=== PATIENT | female | born 1950 | race Caucasian/White ===

== ENCOUNTER → 2016-07-27 | Outpatient (CLI) | payer BC ==
[~2016-07-27] MED LIST: AMIO200T4 PO; AMOX1POW6 PO; AMOX875T PO; ATOR-26 PO; ATV/1 PO; BUSP15TA70 PO; CEPH500C2 PO; CHOL100040 PO; CRAN1TAB3 PO; ERGO500011 PO; FEXO1TAB46 PO; LEVO125T5 PO; LEVO150T9 PO; LISI-725 PO; LPR100 PO; LSNP/30 PO; LSX20 PO; LXP/20 PO; MAGN250T16 PO; MAGN250T3 PO; OMEP20CA9 PO; POTA10CA28 PO; SALI1SPR3 NAE; TPRSR/100 PO; WARF-285; WARF2TAB PO; WARF2TAB8 PO; WARF3TAB PO
[2016-07-27 15:46] LABS: BASO % 0.2 %; BASO ABS # 0.01 K/uL (0-0.2); COMPLETE YES; EOS % 1.1 %; HEMATOCRIT 42.6 % (37-47); IG% 0.2 %; LYMPH % 15.6 %; LYMPH ABS # 1.03 K/uL (1.2-3.4); MEAN CELL VOLUME 82.1 fL (80-100); MEAN CORPUSCULAR HEMOGLOBIN 26.4 pg (25-34); MEAN CORPUSCULAR HGB CONC 32.2 g/dl (32-36); MEAN PLATELET VOLUME 12.3 fL (7.4-10.4); MONO % 3.9 %; PLATELET COUNT 264 K/uL (130-400); RED BLOOD COUNT 5.19 M/uL (4.2-5.4)
[2016-07-27 16:09] LABS: BLOOD UREA NITROGEN 14 mg/dl (7-18); BUN/CREATININE RATIO 12.3 (10-20); CALCIUM 8.8 mg/dl (8.5-10.1); CARBON DIOXIDE 28 mmol/L (21-32); CHLORIDE 105 mmol/L (98-107); GLUCOSE 109 mg/dl (70-99); MAGNESIUM 2.1 mg/dl (1.8-2.4); POTASSIUM 4.1 mmol/L (3.5-5.1); SODIUM 140 mmol/L (136-145)
[2016-08-01 16:28] LABS: AMIODARONE 1.7 mcg/mL (1.5-2.5); DESMETHYLAMIODARONE 1.3 mcg/mL (1.5-2.5)
--- NOTE | 2016-08-02 07:09 | CODING QUERY MEDICAL NECESSITY ---
SUPPORTING DIAGNOSIS NEEDED A supporting diagnosis is required for the test/procedure performed on this patient in order for us to be reimbursed by the patient's insurance. Please provide a supporting diagnosis for the following test/procedure listed below next to the test name along with your signature. *If there is no additional diagnosis for this patient that would support the following test/procedure please document that below next to the test/procedure. Test(s)/Procedure(s) that require a supporting diagnosis: DOS 07/27 * Amiodarone Level DIAGNOSIS: Provider Signature: Date: Thank you Taniya Pandya Health Information Management Once completed, please kindly fax back to [phone] For questions please call [phone]
== END | disposition home or self-care (01) ==
LOC: C.LAB1850 14:35
PROVIDERS: ATTEND Internal Medicine
DX: I48.0 Paroxysmal atrial fibrillation (principal)

== ENCOUNTER → 2016-07-28 | Day surgery (SDC) | payer BC ==
[~2016-07-28] VITALS: Ht 177.8 cm; Wt 146.8 kg
[~2016-07-28] MED LIST changes: -CHOL100040 PO; +ERGO1CAP41 PO; -ERGO500011 PO; +LEVO125T4 PO; -LEVO125T5 PO; +LIDOCAINE HCL 2% 2 ML VIAL (20MG/ML) ONE; -MAGN250T3 PO; +PROPOFOL IV EMULSION 10 MG/ML 20 ML VIAL IV ONE
[2016-07-28 07:10] VITALS: BP 193/115; PULSE 85; TEMP 36.8; O2SAT 95; Ht 177.8 cm; Wt 146.8 kg
[2016-07-28 07:45] VITALS: BP 169/107; PULSE 90; O2SAT 98
[2016-07-28 07:50] VITALS: BP 124/74; PULSE 87; O2SAT 98
[2016-07-28 07:52] VITALS: BP 124/74; PULSE 59; PULSE 87; O2SAT 98
[2016-07-28 07:55] VITALS: BP 128/61; PULSE 59; O2SAT 99
--- NOTE | 2016-07-28 08:02 | Cardiology Procedure Brief Nt ---
Preliminary Cardiology Note Procedure Date Jul 28, 2016. 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
--- NOTE | 2016-07-28 08:14 | OPERATIVE REPORT ---
DATE OF OPERATION: 07/28/2016 INDICATIONS FOR CARDIOVERSION: Atrial fibrillation. HISTORY OF PRESENT ILLNESS: This is a 66-year-old woman who has a history of atrial fibrillation for which she has been maintained on amiodarone. She has done relatively well for several years, however, developed atrial fibrillation on the evening of 07/26/2016. She has remained in atrial fibrillation and is quite symptomatic; therefore she was brought to laboratory for cardioversion. DESCRIPTION OF PROCEDURE: After obtaining informed consent for the procedure, she was anesthetized using propofol anesthetic delivered by the anesthesia department. Once adequately anesthetized, electrical cardioversion was performed using anteroposterior patch electrodes and a 200 joule biphasic shock. She converted to sinus bradycardia without difficulty. She awoke without complication, will be observed briefly and discharged. CANDE
--- NOTE | 2016-07-28 09:04 | Discharge Instructions ---
Discharge Instructions Admission Reason for Admission: A Fib Discharge Discharge Diagnosis / Problem: electrical cardioversion Discharge Goals Goal(s): Improve disease control Activity Recommendations Activity Limitations: resume your previous activity . Instructions / Follow-Up Instructions / Follow-Up ACTIVITY RECOMMENDATIONS: * May resume driving tomorrow. SPECIAL CARE: * May apply burn ointment for skin irritation. * Please contact physician for any lightheadedness, dizziness or palpitations. Current Hospital Diet Patient's current hospital diet: AHA Diet (Heart Healthy) Discharge Diet Recommended Diet: AHA Diet (Heart Healthy) Pending Studies Studies pending at discharge: no Medical Emergencies . Who to Call and When: Medical Emergencies: If at any time you feel your situation is an emergency, please call 911 immediately. . Non-Emergent Contact Non-Emergency issues call your: Primary Care Provider . . "Provider Documentation" section prepared by Joe Najera. VTE Core Measure Inpt VTE Proph given/why not?: Other Anticoagulation
--- NOTE | 2016-07-28 09:17 | Anesthesiology Progress Note ---
Anesthesia Post Op Note Date & Time Jul 28, 2016 at 09:16 Vital Signs Pain Intensity: 0 Vital Signs Past 12 Hours Date Time Temp Pulse Resp B/P Pulse Ox O2 Delivery O2 Flow Rate FiO2 07/28/16 08:50 57 16 145/62 99 Room Air 07/28/16 08:35 62 16 146/67 99 Room Air 07/28/16 08:20 58 16 124/62 98 Room Air 07/28/16 08:20 60 16 124/62 98 Room Air 07/28/16 08:00 59 16 126/62 98 Room Air 07/28/16 07:55 59 16 128/61 99 Nasal Cannula 4 07/28/16 07:52 59 16 124/74 98 Nasal Cannula 4 07/28/16 07:50 87 16 124/74 98 Nasal Cannula 4 07/28/16 07:45 90 16 169/107 98 Nasal Cannula 4 07/28/16 07:10 36.8 85 16 193/115 95 Room Air Notes Mental Status: alert / awake / arousable, participated in evaluation Pt Amnestic to Procedure: Yes Nausea / Vomiting: adequately controlled Pain: adequately controlled Airway Patency, RR, SpO2: stable & adequate BP & HR: stable & adequate Hydration State: stable & adequate Anesthetic Complications: no major complications apparent
[2016-07-28 09:20] VITALS: BP 130/65; PULSE 57; O2SAT 99
== END | disposition home or self-care (01) ==
LOC: C.CATH 06:52
PROVIDERS: ATTEND Internal Medicine Cardiovascular Disease
DX: I48.0 Paroxysmal atrial fibrillation (principal); R00.2 Palpitations; I25.10 Atherosclerotic heart disease of native coronary artery without angina pectoris; Z79.899 Other long term (current) drug therapy; F41.9 Anxiety disorder, unspecified; N18.2 Chronic kidney disease, stage 2 (mild); I12.9 Hypertensive chronic kidney disease with stage 1 through stage 4 chronic kidney disease, or unspecified chronic kidney disease; E78.5 Hyperlipidemia, unspecified; E03.9 Hypothyroidism, unspecified; K20.9 Esophagitis, unspecified; Z79.01 Long term (current) use of anticoagulants; Z82.49 Family history of ischemic heart disease and other diseases of the circulatory system; Z83.3 Family history of diabetes mellitus; Z98.890 Other specified postprocedural states; Z96.649 Presence of unspecified artificial hip joint; Z90.710 Acquired absence of both cervix and uterus; Z68.41 Body mass index [BMI] 40.0-44.9, adult

== ENCOUNTER → 2016-08-15 | Outpatient (CLI) | payer BC ==
[~2016-08-15] MED LIST changes: -LIDOCAINE HCL 2% 2 ML VIAL (20MG/ML) ONE; -PROPOFOL IV EMULSION 10 MG/ML 20 ML VIAL IV ONE
[2016-08-15 15:44] LABS: URINE BILIRUBIN NEG (NEG); URINE NITRITE NEG (NEG); URINE SPECIFIC GRAVITY 1.009 (1.000-1.030); UROBILINOGEN NEG (NEG)
[2016-08-15 15:48] LABS: MANUAL MICROSCOPIC REQUIRED? NO; REVIEW REQ? NO; URINE APPEARANCE SLIGHTLY CLOUDY (CLEAR); URINE COLOR YELLOW
== END | disposition home or self-care (01) ==
LOC: C.LAB 14:03
PROVIDERS: ATTEND Internal Medicine
DX: N39.0 Urinary tract infection, site not specified (principal); R35.0 Frequency of micturition

== ENCOUNTER → 2016-08-21 | Outpatient (CLI) | payer BC ==
[2016-08-21 10:12] LABS: COMPLETE YES; EOS % 1.1 %; HEMATOCRIT 42.1 % (37-47); IG% 0.1 %; LYMPH % 8.1 %; LYMPH ABS # 0.65 K/uL (1.2-3.4); MEAN CELL VOLUME 83.9 fL (80-100); MEAN CORPUSCULAR HEMOGLOBIN 27.1 pg (25-34); MEAN CORPUSCULAR HGB CONC 32.3 g/dl (32-36); MEAN PLATELET VOLUME 12.6 fL (7.4-10.4); MONO % 9.2 %; NEUT % 81.5 %; PLATELET COUNT 241 K/uL (130-400); RED BLOOD COUNT 5.02 M/uL (4.2-5.4); WHITE BLOOD COUNT 8.06 K/uL (4.8-10.8)
[2016-08-21 10:32] LABS: URINE APPEARANCE CLOUDY (CLEAR); URINE COLOR RED; URINE EPITHELIAL CELL AUTO 20-30 /lpf (0-5); URINE NITRITE NEG (NEG); URINE PH 5.5 (4.5-7.5); URINE SPECIFIC GRAVITY 1.019 (1.000-1.030); UROBILINOGEN NEG (NEG)
[2016-08-21 10:34] LABS: MANUAL MICROSCOPIC REQUIRED? NO; REVIEW REQ? NO
[2016-08-21 10:37] LABS: URINE BILIRUBIN NEG (NEG)
== END | disposition home or self-care (01) ==
LOC: C.LAB 09:20
PROVIDERS: ATTEND Internal Medicine
DX: R31.0 Gross hematuria (principal)

== ENCOUNTER → 2016-08-29 | Outpatient (CLI) | payer BC ==
[2016-08-29 10:10] LABS: URINE APPEARANCE CLEAR (CLEAR); URINE BILIRUBIN NEG (NEG); URINE COLOR YELLOW; URINE NITRITE NEG (NEG); URINE SPECIFIC GRAVITY 1.011 (1.000-1.030); UROBILINOGEN NEG (NEG)
[2016-08-29 10:11] LABS: MANUAL MICROSCOPIC REQUIRED? NO; REVIEW REQ? NO
== END | disposition home or self-care (01) ==
LOC: C.LAB 08:39
PROVIDERS: ATTEND Internal Medicine
DX: R35.0 Frequency of micturition (principal)

== ENCOUNTER → 2017-01-09 | Outpatient (CLI) | payer BC ==
[~2017-01-09] MED LIST changes: +CHOL100040 PO; -ERGO1CAP41 PO; +ERGO500011 PO; -LEVO125T4 PO; +LEVO125T5 PO; +MAGN250T3 PO
[2017-01-09 15:27] LABS: ALB/GLOB RATIO 0.7 (0.9-2); ALT/SGPT 35 U/L (12-78); AST/SGOT 29 U/L (15-37); BLOOD UREA NITROGEN 18 mg/dl (7-18); BUN/CREATININE RATIO 18.3 (10-20); CALCIUM 8.3 mg/dl (8.5-10.1); CARBON DIOXIDE 28 mmol/L (21-32); CHLORIDE 107 mmol/L (98-107); GLUCOSE 104 mg/dl (70-99); MAGNESIUM 2.2 mg/dl (1.8-2.4); POTASSIUM 4.5 mmol/L (3.5-5.1); SODIUM 142 mmol/L (136-145)
[2017-01-09 15:38] LABS: ALKALINE PHOSPHATASE 171 U/L (45-117)
[2017-01-13 17:21] LABS: AMIODARONE 1.5 mcg/mL (1.5-2.5); DESMETHYLAMIODARONE 1.1 mcg/mL (1.5-2.5)
--- NOTE | 2017-01-16 13:32 | CODING QUERY MEDICAL NECESSITY ---
SUPPORTING DIAGNOSIS NEEDED A supporting diagnosis is required for the test/procedure performed on this patient in order for us to be reimbursed by the patient's insurance. Please provide a supporting diagnosis for the following test/procedure listed below next to the test name along with your signature. *If there is no additional diagnosis for this patient that would support the following test/procedure please document that below next to the test/procedure. Test(s)/Procedure(s) that require a supporting diagnosis: * AMIODARONE DIAGNOSIS: Provider Signature: Date: Thank you Maria Boss [employer] Information Management Once completed, please kindly fax back to [phone] For questions please call [phone]
== END | disposition home or self-care (01) ==
LOC: C.LAB 14:08
PROVIDERS: ATTEND Physician Assistant Medical
DX: I48.0 Paroxysmal atrial fibrillation (principal); I50.9 Heart failure, unspecified; Z79.899 Other long term (current) drug therapy

== ENCOUNTER → 2017-01-22 | Outpatient (CLI) | payer BC ==
[~2017-01-22] MED LIST changes: -CHOL100040 PO; +ERGO1CAP41 PO; -ERGO500011 PO; +LEVO125T4 PO; -LEVO125T5 PO; -MAGN250T3 PO
--- NOTE | 2017-01-22 12:37 | MAMMOGRAPHY REPORT ---
BILATERAL DIGITAL SCREENING MAMMOGRAM WITH CAD: 01/22/2017 CLINICAL HISTORY: Routine screening. TECHNIQUE: Bilateral CC, MLO, XCCL andrepeat right MLO views were obtained. Current study was also evaluated with a Computer Aided Detection (CAD) system. COMPARISON: Comparison is made to exams dated: 01/17/2016 mammogram, 01/11/2015 mammogram, 01/06/2014 m ammogram, 12/10/2012 mammogram, 12/06/2011 mammogram, and 09/16/2010 mammogram - [facility] enter. BREAST COMPOSITION: There are scattered areas of fibroglandular density in both breasts. FINDINGS: There is a stable lobulated and circumscribed mass in the upper outer posterior left breast . A stable metallic biopsy marker within the right breast. Benign-appearing microcalcifications celestino aterally. Minimal vascular calcification in the breasts. No new suspicious mass, architectural dist ortion or cluster of microcalcifications is seen. IMPRESSION: ACR BI-RADS CATEGORY 1: NEGATIVE There is no mammographic evidence of malignancy. A 1 year screening mammogram is recommended. The pa tient will receive written notification of the results. Approximately 10% of breast cancers are not detected with mammography. A negative mammographic report should not delay biopsy if a clinically suggestive mass is present. Sujatha Ferreira M.D. ay/:01/22/2017 08:47:35 Order Tracer: Jose Elias SCHULER)([place]), [facility] letter sent: Normal 1/2 BI-RADS Code: ACR BI-RADS Category 1: Negative
== END | disposition home or self-care (01) ==
LOC: C.MAMM 07:22
PROVIDERS: ATTEND Internal Medicine
DX: Z12.31 Encounter for screening mammogram for malignant neoplasm of breast (principal)

== ENCOUNTER → 2017-02-17 | Outpatient (CLI) | payer BC ==
[2017-02-17 09:01] LABS: BASO % 0.3 %; BASO ABS # 0.02 K/uL (0-0.2); COMPLETE YES; EOS % 1.9 %; HEMATOCRIT 39.9 % (37-47); IG% 0.3 %; LYMPH % 8.2 %; LYMPH ABS # 0.62 K/uL (1.2-3.4); MEAN CELL VOLUME 82.1 fL (80-100); MEAN CORPUSCULAR HEMOGLOBIN 25.5 pg (25-34); MEAN CORPUSCULAR HGB CONC 31.1 g/dl (32-36); MEAN PLATELET VOLUME 11.9 fL (7.4-10.4); MONO % 7.3 %; PLATELET COUNT 258 K/uL (130-400); RED BLOOD COUNT 4.86 M/uL (4.2-5.4); WHITE BLOOD COUNT 7.55 K/uL (4.8-10.8)
[2017-02-17 09:33] LABS: ALT/SGPT 45 U/L (12-78); AST/SGOT 37 U/L (15-37); BLOOD UREA NITROGEN 16 mg/dl (7-18); BUN/CREATININE RATIO 16.4 (10-20); CALCIUM 8.8 mg/dl (8.5-10.1); CARBON DIOXIDE 29 mmol/L (21-32); CHLORIDE 108 mmol/L (98-107); GLUCOSE 104 mg/dl (70-99); MAGNESIUM 2.2 mg/dl (1.8-2.4); POTASSIUM 4.4 mmol/L (3.5-5.1); SODIUM 142 mmol/L (136-145)
[2017-02-17 09:41] LABS: ALB/GLOB RATIO 0.6 (0.9-2); ALKALINE PHOSPHATASE 169 U/L (45-117); CHOLESTEROL 144 mg/dl (0-200); CHOLESTEROL/HDL RATIO 2.7; HDL CHOLESTEROL 54 mg/dl; LDL CHOLESTEROL CALCULATED 75 mg/dl; TRIGLYCERIDES 75 mg/dl (0-150); VERY LOW DENSITY LIPOPROT CALC 15 mg/dl
--- NOTE | 2017-02-21 10:30 | CODING QUERY MEDICAL NECESSITY ---
SUPPORTING DIAGNOSIS NEEDED Dr. Weber, A supporting diagnosis is required for the test/procedure performed on this patient in order for us to be reimbursed by the patient's insurance. Please provide a supporting diagnosis for the following test/procedure listed below next to the test name along with your signature. *If there is no additional diagnosis for this patient that would support the following test/procedure please document that below next to the test/procedure. Test(s)/Procedure(s) that require a supporting diagnosis: * ([id number]) VITAMIN D ASSAY DIAGNOSIS: DATE OF SERVICE: 02/17/17 Provider Signature: Date: Thank you Shmuel Gonzalez [facility] Information Management Once completed, please kindly fax back to [phone] For questions please call [phone]
== END | disposition home or self-care (01) ==
LOC: C.LAB 07:12
PROVIDERS: ATTEND Internal Medicine
DX: R73.09 Other abnormal glucose (principal); N20.0 Calculus of kidney; E55.9 Vitamin D deficiency, unspecified

== ENCOUNTER 2017-03-07 08:03 | Emergency (ER) | payer BC ==
[~2017-03-07] VITALS: Ht 180.3 cm; Wt 145.0 kg
[~2017-03-07 08:03] MED LIST changes: -AMOX875T PO; -ERGO1CAP41 PO; -LEVO150T9 PO; -LSNP/30 PO; -TPRSR/100 PO; -WARF2TAB PO; -WARF3TAB PO
[2017-03-07 08:08] VITALS: TEMP 36.6; Ht 180.3 cm; Wt 145.0 kg
--- NOTE | 2017-03-07 08:24 | EMERGENCY ROOM VISIT NOTE ---
ED Visit Note First contact with patient: 08:13 I have seen and examined this patient with Aranza Finley and generally agree with the treatment plan as discussed. Problem List Medical Problems: (1) Atrial Fibrillation Status: Chronic (2) Body Mass Index 40 And Over, Adult Status: Chronic (3) CAD (coronary artery disease) Status: Chronic (4) Diab Krystina Wo Compl, Type Ii Or Unspec Type, Not Uncntrld Status: Chronic (5) History of depression Status: Chronic (6) Hypercholesterolemia Status: Chronic (7) Hypertension Nos Status: Chronic (8) Hypothyroidism Status: Chronic Surgical Problems: (1) Hip Joint Replacement Status Status: Resolved (2) History of cardiac catheterization Status: Resolved Current/Historical Medications Scheduled Amiodarone Hcl (Cordarone), 400 MG PO DAILY Amoxicillin-Potassium Clavulan (Amoxicillin/Clavulanate P), 1 TAB PO Q12 Atorvastatin (Lipitor), 80 MG PO HS Buspirone Hcl (Buspar), 15 MG PO TID Cephalexin Monohydrate (Keflex), 500 MG PO QPM Cranberry (Vaccinium Macrocarp (Cranberry), 2 TAB PO QPM Escitalopram Oxalate (Escitalopram Oxalate), 20 MG PO QAM Fexofenadine Hcl (Lucero), 180 MG PO QAM Furosemide (Furosemide), 20 MG PO Q2D Levothyroxine Sodium (Levothyroxine Sodium), 150 MCG PO QAM Lisinopril (Zestril), 20 MG PO QAM Magnesium Oxide (Mg Supplement (Magnesium Oxide), 250 MG PO TID Metoprolol Tartrate (Metoprolol Tartrate), 100 MG PO BID Omeprazole (Prilosec), 20 MG PO BID Potassium Chloride (Micro-K Ext Rel), 10 MEQ PO Q2D Saline (Saline Nasal Dem[place]), RENETTA QAM Warfarin Sod (Jantoven), 2 MG PO DIRECTED Warfarin Sodium (Warfarin Sodium), DIRECTED Scheduled PRN Lorazepam (Ativan), 1 MG PO TID PRN for Anxiety/Agitation Allergies Coded Allergies: No Known Allergies (Verified , 08/27/15) Vital Signs Date Time Temp Pulse Resp B/P (MAP) Pulse Ox O2 Delivery O2 Flow Rate FiO2 03/07/17 08:08 36.6 70 18 163/73 94 Room Air Departure Information Referrals Guillard, Sotero,M.D. (PCP) Patient Instructions [facility]
[2017-03-07] MEDS ORDERED: LEVO150T9 PO (08:33)
[2017-03-07] MEDS ORDERED: ERGO1CAP41 PO (08:33)
[2017-03-07] MEDS ORDERED: TPRSR/100 PO (08:33)
[2017-03-07] MEDS ORDERED: LSNP/30 PO (08:33)
[2017-03-07] MEDS ORDERED: WARF3TAB PO (08:34)
[2017-03-07] MEDS ORDERED: WARF2TAB PO (08:34)
[2017-03-07] MEDS ORDERED: LIDOCAINE/EPINEPHRINE 1% 20 ML VIAL INFIL ONE (09:00)
--- NOTE | 2017-03-07 09:17 | EMERGENCY ROOM VISIT NOTE ---
History First contact with patient: 08:13 Chief Complaint: LACERATION/CUT (NON-SUTURE) Stated Complaint: FALL,OPEN WOUND ON R LEG Nursing Triage Summary: Pt to triage in WC. Large tear to right lower anterior leg. (Approx 4 inches) Bleeding controlled. States she was walking using her walker and walker caught on something causing her to fall. Tear to right posterior hand. Denies hitting head "well I may have bumped it but it wasn't hard". Takes Warfarin. Levels just checked per patient. History of Present Illness The patient is a 67 year old female who presents to the Emergency Room with complaints of right leg laceration. The patient states that around 7:30 AM she was using her walker and planning to do a load of laundry. She states that she has had a pinched nerve in the left leg and wears a brace on the left leg. She states she felt like that leg gave out and she fell to the ground. She believes that she cut her right anterior abebe on the walker when she fell. She states she scraped her right wrist but did not fall onto an outstretched hand. She states that she had a "light bump" to the head. She denies any headache, loss of consciousness, nausea, vomiting, neck pain or back pain. She does take Coumadin for atrial fibrillation. Her last INR was on March 01 and was found to be 2.6. The patient also has a history of venous stasis and lymphedema. She denies any chest pain, trouble breathing, syncope. She denies abdominal pain, nausea or vomiting. She is not certain if her tetanus is up-to-date. Review of Systems A 10 system review of systems was completed with positives and pertinent negatives listed in the HPI. Past Medical/Surgical History Medical Problems: (1) Anticoagulants,Lt,Current Use (2) Atrial Fibrillation (3) Benign Neoplasm Lg Bowel (4) Body Mass Index 40 And Over, Adult (5) CAD (coronary artery disease) (6) Diab Krystina Wo Compl, Type Ii Or Unspec Type, Not Uncntrld (7) History of depression (8) Hypercholesterolemia (9) Hypertension Nos (10) Hypothyroidism Surgical Problems: (1) Hip Joint Replacement Status (2) History of cardiac catheterization Family History Cancer Heart disease Hypertension Lung disease Social History Smoking Status: Never Smoker Drug Use: none Marital Status: Housing Status: lives with family Current/Historical Medications Scheduled Amiodarone Hcl (Cordarone), 200 MG PO BID Amoxicillin & Pot Clavulanate (Augmentin 875-125 mg), 1 TAB PO BID Atorvastatin (Lipitor), 80 MG PO HS Buspirone Hcl (Buspar), 15 MG PO TID Cranberry (Vaccinium Macrocarp (Cranberry), 2 TAB PO QPM Ergocalciferol (Vitamin D 77751 Unit), 50,000 UNIT PO WK Escitalopram Oxalate (Escitalopram Oxalate), 20 MG PO QAM Fexofenadine Hcl (Lucero), 180 MG PO QAM Furosemide (Furosemide), 20 MG PO Q2D Levothyroxine Sodium (Levothyroxine Sodium), 150 MCG PO DAILY Lisinopril (Zestril), 30 MG PO DAILY Magnesium Oxide (Mg Supplement (Magnesium Oxide), 250 MG PO TID Metoprolol Succinate (Metoprolol Succinate ER), 100 MG PO BID Omeprazole (Prilosec), 20 MG PO BID Potassium Chloride (Micro-K Ext Rel), 10 MEQ PO Q2D Saline (Saline Nasal [place]), RENETTA QAM Warfarin Sodium (Coumadin), 2 MG PO 6XWK Warfarin Sodium (Coumadin), 3 MG PO WK Scheduled PRN Lorazepam (Ativan), 1 MG PO TID PRN for Anxiety/Agitation Physical Exam Vital Signs Date Time Temp Pulse Resp B/P (MAP) Pulse Ox O2 Delivery O2 Flow Rate FiO2 03/07/17 14:51 62 157/73 96 03/07/17 12:31 64 20 146/80 94 Room Air 03/07/17 09:44 66 18 177/85 95 Room Air 03/07/17 08:08 36.6 70 18 163/73 94 Room Air Physical Exam VITALS: Vitals are noted on the nurse's note and reviewed by myself. Vital signs stable. The patient is afebrile. She is not tachycardic, tachypneic or hypoxic. GENERAL: This is a 67-year-old female, in no acute distress, nondiaphoretic, well-developed well-nourished. SKIN: There are chronic venous stasis changes to the bilateral lower extremities. There is a large, 7 cm skin tear/laceration with gaping edges to the right anterior lower extremity. Capillary reflex less than 2 seconds. HEAD: Normocephalic atraumatic. EARS: External auditory canals clear, tympanic membranes pearly melvin without erythema or effusion bilaterally. There is no hemotympanum. EYES: Pupils equal round and reactive to light and accommodation. Conjunctivae without injection, sclerae without icterus. Extraocular movements intact. NOSE: Patent, turbinates without inflammation or discharge. Strength MOUTH: Mucous membranes moist. Tonsils are not enlarged. Pharynx without erythema or exudate. Uvula midline. Airway patent. Tongue does not deviate. NECK: Supple without nuchal rigidity. Cervical spine is nontender. No JVD. HEART: Regular rate and rhythm without murmurs gallops or rubs. LUNGS: Clear to auscultation bilaterally without wheezes, rales or rhonchi. No retractions or accessory muscle use. MUSCULOSKELETAL: Full range of motion without joint tenderness in all extremities. There is no deformity. There is a large laceration to the right lower anterior leg as above. The patient was reassessed after she had been in the emergency department and began to develop ecchymosis and tenderness in the site of the laceration. She also developed ecchymosis, swelling and tenderness to the left knee. NEURO: Patient was alert and oriented to person place and time. No focal neurological deficits. Medical Decision & Procedures ER Provider Diagnostic Interpretation: [~ rep ct add3]] CT SCAN OF THE BRAIN WITHOUT IV CONTRAST CLINICAL HISTORY: Fall. COMPARISON STUDY: No priors. TECHNIQUE: Unenhanced axial CT scan of the brain is performed from the vertex to the skull base. CT DOSE: 638.56 mGycm FINDINGS: Brain parenchyma: There are age-related involutional changes noting mild subcortical and periventricular microangiopathic change. There is no hemorrhage, mass effect, or evidence of acute territorial ischemia by CT criteria. Melvin-white matter is preserved. No extra-axial fluid collection is seen. Ventricles, sulci, cisterns: Prominent secondary to involutional change. Intracranial vasculature: There is minimal atherosclerotic calcification of the cavernous carotid arteries. Calvarium: The Skeletal structures are osteopenic. No depressed calvarial fracture is seen. Sinuses and mastoids: The visualized paranasal sinuses are clear. The mastoid air cells are well pneumatized. Orbits: The bony orbits are grossly intact. There is a 1.7 x 1.3 cm ovoid and well circumscribed intraconal mass lesion seen posterior to the left globe on axial image #9. This causes mild localized mass effect. IMPRESSION: 1. There is no hemorrhage, mass effect, or evidence of acute territorial ischemia by CT criteria. 2. There is a 1.7 cm ovoid intraconal mass lesion in the left orbit posterior to the globe. This is nonspecific, and differential considerations include an optic nerve glioma, optic nerve meningioma, lymphoma, metastatic lesion, sarcoidosis, pseudotumor, or possibly hemangioma. Correlation with a contrast-enhanced MRI of the orbits is recommended for further assessment. CHEST ONE VIEW PORTABLE CLINICAL HISTORY: fall COMPARISON STUDY: 02/08/2014 FINDINGS: The heart is enlarged. There is mild pulmonary venous hypertension. There is mild azygous dilatation. There is no lobar consolidation. There are no pleural effusions.[ There is no pneumothorax. IMPRESSION: Cardiomegaly and mild pulmonary venous hypertension. No evidence of focal pulmonary consolidation. MRI OF THE BRAIN AND ORBITS WITHOUT A WITH GADOLINIUM CLINICAL HISTORY: Retro-orbital mass COMPARISON STUDY: CT scan dated 03/07/2017 FINDINGS: Imaging was performed in the axial, sagittal, and coronal planes. Imaging was performed before and after the administration of 14 cc of intravenous Gadavist. Axial diffusion-weighted images reveal no evidence of acute or subacute infarction. There is no evidence of hydrocephalus. Proton density T2-weighted and FLAIR images reveal scattered foci of increased within the white matter, likely on a small vessel basis. There are no pathologically enhancing intra-axial masses. No masses of either globe are visualized. There is a left-sided orbital intraconal mass measuring 21 x 11 x 11 mm. The mass demonstrates a fluid/fluid level. There is increased T2 signal within the anterior aspect of the lesion. The lesion demonstrates intense postcontrast enhancement. IMPRESSION: 1. 21 x 11 x 11 mm left-sided orbital intraconal mass. The mass demonstrates a fluid/fluid level. There is intense postcontrast enhancement. The combination of a fluid/fluid level and intense enhancement is somewhat atypical. This lesion is therefore of uncertain etiology. Diagnostic considerations include an orbital venous varix (although a fluid fluid level would be atypical), orbital lymphangioma (although the intense enhancement would be atypical), cavernous malformation (although enhancement characteristics would be atypical), orbital schwannoma, or hemangiopericytoma. Ophthalmologic referral is recommended. RIGHT TIBIA AND FIBULA 2 VIEWS CLINICAL HISTORY: Fall with right leg pain. FINDINGS: AP and lateral views of the right tibia and fibula are obtained. Correlation is made with radiographs of the right knee dated 09/10/2006. The skeletal structures are osteopenic. There is chronic posttraumatic deformity of the proximal tibia, with evidence of previous open reduction and internal fixation with buttress plate fixation and numerous cortical lag screws. The orthopedic hardware appears intact. No acute fracture is seen. Degenerative change is present in the knee and ankle joints. The overlying soft tissues are within normal limits. IMPRESSION: 1. There is no radiographic evidence of acute fracture involving the right tibia or fibula. 2. Osteopenia with chronic posttraumatic and postoperative changes as above. [~ rep ct add3]] LEFT KNEE 3 VIEWS CLINICAL HISTORY: fall, left knee pain COMPARISON: None. DISCUSSION: No acute fractures or dislocations are visualized. There are osteoarthritic changes most pronounced in the patellofemoral joint. A subtle lucency within the patella likely is secondary to degenerative subchondral cystic change IMPRESSION: 1. No acute fractures 2. Degenerative changes most pronounced within the patellofemoral joint Laboratory Results 03/07/17 09:54 Red Blood Count 4.85, Mean Corpuscular Volume 83.1, Mean Corpuscular Hemoglobin 25.8, Mean Corpuscular Hemoglobin Concent 31.0, Mean Platelet Volume 11.6, Neutrophils (%) (Auto) 87.0, Lymphocytes (%) (Auto) 3.9, Monocytes (%) (Auto) 7.9, Eosinophils (%) (Auto) 0.8, Basophils (%) (Auto) 0.1, Neutrophils # (Auto) 10.19, Lymphocytes # (Auto) 0.46, Monocytes # (Auto) 0.93, Eosinophils # (Auto) 0.09, Basophils # (Auto) 0.01 03/07/17 09:54 Test 03/07/17 08:57 03/07/17 09:54 Bedside Prothrombin Time INR 3.8 (0.9-1.1) White Blood Count 11.71 K/uL (4.8-10.8) Red Blood Count 4.85 M/uL (4.2-5.4) Hemoglobin 12.5 g/dL (12.0-16.0) Hematocrit 40.3 % (37-47) Mean Corpuscular Volume 83.1 fL (80-100) Mean Corpuscular Hemoglobin 25.8 pg (25-34) Mean Corpuscular Hemoglobin Concent 31.0 g/dl (32-36) Platelet Count 261 K/uL (130-400) Mean Platelet Volume 11.6 fL (7.4-10.4) Neutrophils (%) (Auto) 87.0 % Lymphocytes (%) (Auto) 3.9 % Monocytes (%) (Auto) 7.9 % Eosinophils (%) (Auto) 0.8 % Basophils (%) (Auto) 0.1 % Neutrophils # (Auto) 10.19 K/uL (1.4-6.5) Lymphocytes # (Auto) 0.46 K/uL (1.2-3.4) Monocytes # (Auto) 0.93 K/uL (0.11-0.59) Eosinophils # (Auto) 0.09 K/uL (0-0.5) Basophils # (Auto) 0.01 K/uL (0-0.2) RDW Standard Deviation 52.6 fL (36.4-46.3) RDW Coefficient of Variation 17.3 % (11.5-14.5) Immature Granulocyte % (Auto) 0.3 % Immature Granulocyte # (Auto) 0.03 K/uL (0.00-0.02) Prothrombin Time 36.0 SECONDS (9.0-12.0) Prothromb Time International Ratio 3.2 (0.9-1.1) Activated Partial Thromboplast Time 35.9 SECONDS (21.0-31.0) Partial Thromboplastin Ratio 1.4 Anion Gap 5.0 mmol/L (3-11) Estimated GFR () 67.0 Estimated GFR (Non- 57.8 BUN/Creatinine Ratio 18.1 (10-20) Calcium Level 8.6 mg/dl (8.5-10.1) Total Bilirubin 0.5 mg/dl (0.2-1) Aspartate Amino Transf (AST/SGOT) 39 U/L (15-37) Alanine Aminotransferase (ALT/SGPT) 39 U/L (12-78) Alkaline Phosphatase 167 U/L (45-117) Total Protein 7.5 gm/dl (6.4-8.2) Albumin 2.9 gm/dl (3.4-5.0) Globulin 4.6 gm/dl (2.5-4.0) Albumin/Globulin Ratio 0.6 (0.9-2) Medications Administered Medications (Trade) Dose Ordered Sig/Merary Route Start Time Stop Time Status Last Admin Dose Admin Lidocaine/ Epinephrine (Xylocaine/Epine 1% Inj) 20 ml ONE ONCE INFIL 03/07/17 09:00 03/07/17 09:01 DC 03/07/17 09:17 20 ML Lorazepam (Ativan Tab) 1 mg NOW STAT SL 03/07/17 13:23 03/07/17 13:25 DC 03/07/17 13:37 1 MG Procedure A large, complex skin tear/laceration measuring 7 cm in length to the right lower extremity was repaired. Using sterile technique the wound was cleaned with Betadine. The area was sterilely draped. 6 ml of 1% buffered lidocaine with epinephrine was used to anesthetize the skin. Once the patient was numb, the wound was copiously irrigated under pressure with sterile saline. The wound was explored and there were no deep structures such as tendons, bone, or ligaments present. The laceration was repaired using to 4-0 nylon vertical mattress sutures and 24 simple interrupted 4-0 nylon sutures with the wound edges being well approximated. The patient tolerated the procedure well. The bleeding stopped. The area was cleaned with sterile saline and dressed with bacitracin ointment and bandage and Donny wrap. ED Course The patient was seen and examined. Previous visits were reviewed. The patient does not have a fever. She has a mild leukocytosis. She does not have any significant elect light abnormalities. INR was 3.2. CT scan of the brain was obtained as above. There is an intraconal lesion on the left. MRI was recommended. There was no intracranial bleeding. MRI of the brain for orbits with and without contrast was ordered and obtained as above. This again demonstrates the intraconal lesion behind the left eye. The exact etiology is not clear. Ophthalmologic evaluation was recommended. Chest x-ray does not reveal any acute abnormality. The patient's laceration was repaired as above. Given that this was deep, complex, the patient has lymphedema, I do not feel that this wound will heal quickly and easily. The patient was placed on Augmentin prophylactically as she has done well with it in the past. She was advised to recheck with her family doctor and that she potentially may need referral to the wound center. She should have the sutures removed in 12-14 days. She should return sooner with any redness, swelling, warmth, drainage of pus. Imaging was obtained as above. There did not seem to be any acute abnormality from the fall today. However, there was an incidental finding of an intraconal left mass behind the eye. CT scan and MRI were obtained as above. The patient is completely asymptomatic. She has no complaints of visual changes. Her left pupil is minimally larger than the right but they are both reactive. I discussed the case with Dr. Warner. He recommends that she contact the office first thing in the morning to schedule a follow-up appointment and see Dr. Rouse tomorrow morning. The patient was advised of this. The patient should return immediately with any changing or worsening symptoms. The patient was also seen and examined by who agrees with the assessment and treatment plan. Medical Decision The differential diagnosis includes extremity fracture, laceration, skin tear, intracranial bleeding, concussion, contusion, neoplasm, among others Medication Reconcilliation Current Medication List: was personally reviewed by me Blood Pressure Screening Patient's blood pressure: Elevated blood pressure Blood pressure disposition: Elevated BP felt to be situational Impression Primary Impression: Leg laceration Additional Impressions: Orbital mass Fall Multiple contusions Departure Information Dispostion Home / Self-Care Condition GOOD Prescriptions Amoxicillin & Pot Clavulanate (Augmentin 875-125 mg) 1 Tab Tab 1 TAB PO BID for 7 Days, #14 TAB Prov: Aranza Finley PA-C 03/07/17 Referrals Sotero Weber M.D. (PCP) Herson Rouse D.O. Patient Instructions ED Laceration All, [facility] Additional Instructions Call Dr. Warner's office in the morning. He would like you to see Dr. Rouse tomorrow. Return with headache, vision trouble, Hold coumadin Keep wound clean and dry. Do not allow any crusting or dried blood to accumulate on sutures. If this occurs, use a 1:1 solution of hydrogen peroxide/ water on a Q-tip to clean the wound. Use an antibiotic ointment for 3-4 days, then let wound dry. Suture removal in 12-14 days. Return sooner for any signs of infection (increasing redness, swelling, drainage). Ice and elevate for swelling and pain. Keep covered when in sun until sutures removed then SPF 50 or higher for one year. Vitamin E oil if desired two weeks after suture removal for reduction of scar. Augmentin twice daily for 7 days to help prevent infection. You may need to see the wound center if the laceration does not heal well. Return with any redness, swelling, warmth, drainage of pus, fever Problem Qualifiers Primary Impression: Leg laceration Encounter type: initial encounter
[2017-03-07 10:13] LABS: BASO % 0.1 %; BASO ABS # 0.01 K/uL (0-0.2); COMPLETE YES; EOS % 0.8 %; HEMATOCRIT 40.3 % (37-47); IG% 0.3 %; LYMPH % 3.9 %; LYMPH ABS # 0.46 K/uL (1.2-3.4); MEAN CELL VOLUME 83.1 fL (80-100); MEAN CORPUSCULAR HEMOGLOBIN 25.8 pg (25-34); MEAN PLATELET VOLUME 11.6 fL (7.4-10.4); MONO % 7.9 %; PLATELET COUNT 261 K/uL (130-400); RED BLOOD COUNT 4.85 M/uL (4.2-5.4); WHITE BLOOD COUNT 11.71 K/uL (4.8-10.8)
[2017-03-07 10:28] LABS: INR 3.2 (0.9-1.1); PARTIAL THROMBOPLASTIN RATIO 1.4
[2017-03-07 10:31] LABS: ALT/SGPT 39 U/L (12-78); BLOOD UREA NITROGEN 18 mg/dl (7-18); BUN/CREATININE RATIO 18.1 (10-20); CALCIUM 8.6 mg/dl (8.5-10.1); CARBON DIOXIDE 27 mmol/L (21-32); CHLORIDE 108 mmol/L (98-107); GLUCOSE 122 mg/dl (70-99); POTASSIUM 4.1 mmol/L (3.5-5.1); SODIUM 140 mmol/L (136-145)
--- NOTE | 2017-03-07 10:32 | DIAGNOSTIC IMAGING REPORT ---
CHEST ONE VIEW PORTABLE CLINICAL HISTORY: fall COMPARISON STUDY: 02/08/2014 FINDINGS: The heart is enlarged. There is mild pulmonary venous hypertension. There is mild azygous dilatation. There is no lobar consolidation. There are no pleural effusions.[ There is no pneumothorax. IMPRESSION: Cardiomegaly and mild pulmonary venous hypertension. No evidence of focal pulmonary consolidation. Electronically signed by: Beltran Kovacs M.D. 03/07/2017 10:30 AM Dictated Date/Time: 03/07/2017 10:27 AM
[2017-03-07 10:34] LABS: ALB/GLOB RATIO 0.6 (0.9-2); ALKALINE PHOSPHATASE 167 U/L (45-117); AST/SGOT 39 U/L (15-37)
[2017-03-07] MEDS ORDERED: GADAVIST IV PRN (12:30)
--- NOTE | 2017-03-07 12:55 | DIAGNOSTIC IMAGING REPORT ---
MRI OF THE BRAIN AND ORBITS WITHOUT A WITH GADOLINIUM CLINICAL HISTORY: Retro-orbital mass COMPARISON STUDY: CT scan dated 03/07/2017 FINDINGS: Imaging was performed in the axial, sagittal, and coronal planes. Imaging was performed before and after the administration of 14 cc of intravenous Gadavist. Axial diffusion-weighted images reveal no evidence of acute or subacute infarction. There is no evidence of hydrocephalus. Proton density T2-weighted and FLAIR images reveal scattered foci of increased within the white matter, likely on a small vessel basis. There are no pathologically enhancing intra-axial masses. No masses of either globe are visualized. There is a left-sided orbital intraconal mass measuring 21 x 11 x 11 mm. The mass demonstrates a fluid/fluid level. There is increased T2 signal within the anterior aspect of the lesion. The lesion demonstrates intense postcontrast enhancement. IMPRESSION: 1. 21 x 11 x 11 mm left-sided orbital intraconal mass. The mass demonstrates a fluid/fluid level. There is intense postcontrast enhancement. The combination of a fluid/fluid level and intense enhancement is somewhat atypical. This lesion is therefore of uncertain etiology. Diagnostic considerations include an orbital venous varix (although a fluid fluid level would be atypical), orbital lymphangioma (although the intense enhancement would be atypical), cavernous malformation (although enhancement characteristics would be atypical), orbital schwannoma, or hemangiopericytoma. Ophthalmologic referral is recommended. Electronically signed by: Beltran Kovacs M.D. 03/07/2017 12:54 PM Dictated Date/Time: 03/07/2017 12:26 PM
[2017-03-07] MEDS ORDERED: LORAZEPAM 1 MG TAB SL STA (13:23)
[2017-03-07] MEDS ORDERED: AMOX875T PO (13:43)
--- NOTE | 2017-03-07 14:38 | DIAGNOSTIC IMAGING REPORT ---
LEFT KNEE 3 VIEWS CLINICAL HISTORY: fall, left knee pain COMPARISON: None. DISCUSSION: No acute fractures or dislocations are visualized. There are osteoarthritic changes most pronounced in the patellofemoral joint. A subtle lucency within the patella likely is secondary to degenerative subchondral cystic change IMPRESSION: 1. No acute fractures 2. Degenerative changes most pronounced within the patellofemoral joint Electronically signed by: Beltran Kovacs M.D. 03/07/2017 2:36 PM Dictated Date/Time: 03/07/2017 2:35 PM
--- NOTE | 2017-03-07 14:39 | DIAGNOSTIC IMAGING REPORT ---
RIGHT TIBIA AND FIBULA 2 VIEWS CLINICAL HISTORY: Fall with right leg pain. FINDINGS: AP and lateral views of the right tibia and fibula are obtained. Correlation is made with radiographs of the right knee dated 09/10/2006. The skeletal structures are osteopenic. There is chronic posttraumatic deformity of the proximal tibia, with evidence of previous open reduction and internal fixation with buttress plate fixation and numerous cortical lag screws. The orthopedic hardware appears intact. No acute fracture is seen. Degenerative change is present in the knee and ankle joints. The overlying soft tissues are within normal limits. IMPRESSION: 1. There is no radiographic evidence of acute fracture involving the right tibia or fibula. 2. Osteopenia with chronic posttraumatic and postoperative changes as above. Electronically signed by: Tim Beaver M.D. 03/07/2017 2:38 PM Dictated Date/Time: 03/07/2017 2:35 PM
[2017-03-07 14:51] VITALS: BP 157/73; PULSE 62; O2SAT 96
== END 2017-03-07 15:04 | disposition home or self-care (01) ==
LOC: C.EDB 08:05
DX: S81.811A Laceration without foreign body, right lower leg, initial encounter (principal); W19.XXXA Unspecified fall, initial encounter; I48.91 Unspecified atrial fibrillation; I10 Essential (primary) hypertension; E11.9 Type 2 diabetes mellitus without complications; E78.00 Pure hypercholesterolemia, unspecified; E03.9 Hypothyroidism, unspecified; I25.10 Atherosclerotic heart disease of native coronary artery without angina pectoris; F32.9 Major depressive disorder, single episode, unspecified; Z86.018 Personal history of other benign neoplasm; Z96.649 Presence of unspecified artificial hip joint; Z79.01 Long term (current) use of anticoagulants; Z79.899 Other long term (current) drug therapy; Z80.9 Family history of malignant neoplasm, unspecified; Z82.49 Family history of ischemic heart disease and other diseases of the circulatory system

== ENCOUNTER → 2017-03-15 | Outpatient (CLI) | payer BC ==
[~2017-03-15] MED LIST changes: -AMOX1POW6 PO; +AMOX875T PO; -CEPH500C2 PO; +ERGO1CAP41 PO; -LEVO125T4 PO; +LEVO150T9 PO; -LISI-725 PO; -LPR100 PO; +LSNP/30 PO; +TPRSR/100 PO; -WARF-285; +WARF2TAB PO; -WARF2TAB8 PO; +WARF3TAB PO
[2017-03-15 13:08] LABS: URINE APPEARANCE CLEAR (CLEAR); URINE BILIRUBIN NEG (NEG); URINE COLOR YELLOW; URINE NITRITE NEG (NEG); URINE SPECIFIC GRAVITY 1.017 (1.000-1.030); UROBILINOGEN NEG (NEG)
[2017-03-15 13:15] LABS: MANUAL MICROSCOPIC REQUIRED? NO; REVIEW REQ? NO
== END | disposition home or self-care (01) ==
LOC: C.LAB 09:40
PROVIDERS: ATTEND Internal Medicine
DX: R35.0 Frequency of micturition (principal); N39.0 Urinary tract infection, site not specified; I48.0 Paroxysmal atrial fibrillation; S81.811A Laceration without foreign body, right lower leg, initial encounter; W45.8XXA Other foreign body or object entering through skin, initial encounter; W19.XXXA Unspecified fall, initial encounter; I10 Essential (primary) hypertension; F41.9 Anxiety disorder, unspecified; Z79.899 Other long term (current) drug therapy; Z79.01 Long term (current) use of anticoagulants

== ENCOUNTER → 2017-03-29 | Outpatient (CLI) | payer BC ==
[~2017-03-29] MED LIST changes: -AMOX875T PO
[2017-03-29 11:43] LABS: INR 2.5 (0.9-1.1); PROTHROMBIN TIME (PATIENT) 27.9 SECONDS (9.0-12.0)
== END | disposition home or self-care (01) ==
LOC: C.LABSPEC 11:04
PROVIDERS: ATTEND Internal Medicine
DX: Z79.01 Long term (current) use of anticoagulants (principal)

== ENCOUNTER → 2017-06-06 | Outpatient (CLI) | payer BC ==
[~2017-06-06] MED LIST changes: +CHOL100040 PO; -ERGO1CAP41 PO; -MAGN250T16 PO; +MAGN250T3 PO
[2017-06-06 17:56] LABS: URINE APPEARANCE CLOUDY (CLEAR); URINE BILIRUBIN NEG (NEG); URINE COLOR YELLOW; URINE NITRITE POS (NEG); URINE PH 6.5 (4.5-7.5); URINE SPECIFIC GRAVITY 1.022 (1.000-1.030); UROBILINOGEN NEG (NEG)
[2017-06-06 17:57] LABS: MANUAL MICROSCOPIC REQUIRED? NO; REVIEW REQ? NO
== END | disposition home or self-care (01) ==
LOC: C.LABBC 10:23
PROVIDERS: ATTEND Internal Medicine
DX: N39.0 Urinary tract infection, site not specified (principal)

== ENCOUNTER → 2017-06-26 | Outpatient (CLI) | payer BC ==
[2017-06-26 09:39] LABS: BASO % 0.3 %; BASO ABS # 0.02 K/uL (0-0.2); COMPLETE YES; EOS % 1.3 %; IG% 0.1 %; LYMPH % 8.5 %; LYMPH ABS # 0.61 K/uL (1.2-3.4); MEAN CELL VOLUME 81.6 fL (80-100); MEAN CORPUSCULAR HEMOGLOBIN 25.7 pg (25-34); MEAN CORPUSCULAR HGB CONC 31.5 g/dl (32-36); MEAN PLATELET VOLUME 12.4 fL (7.4-10.4); MONO % 7.7 %; NEUT % 82.1 %; PLATELET COUNT 280 K/uL (130-400); WHITE BLOOD COUNT 7.14 K/uL (4.8-10.8)
[2017-06-26 09:56] LABS: ALB/GLOB RATIO 0.6 (0.9-2); ALT/SGPT 79 U/L (12-78); AST/SGOT 65 U/L (15-37); BLOOD UREA NITROGEN 25 mg/dl (7-18); CALCIUM 9.3 mg/dl (8.5-10.1); CARBON DIOXIDE 29 mmol/L (21-32); CHLORIDE 104 mmol/L (98-107); CREATININE 1.04 mg/dl (0.60-1.20); GLUCOSE 100 mg/dl (70-99); MAGNESIUM 2.1 mg/dl (1.8-2.4); POTASSIUM 4.8 mmol/L (3.5-5.1); SODIUM 137 mmol/L (136-145)
[2017-06-26 10:01] LABS: ESTIMATED AVERAGE GLUCOSE 126 mg/dl; HA1C FLAG Normal (Normal)
[2017-06-26 10:06] LABS: ALKALINE PHOSPHATASE 166 U/L (45-117)
[2017-06-26 10:12] LABS: INR 2.7 (0.9-1.1); PROTHROMBIN TIME (PATIENT) 28.2 SECONDS (9.0-12.0)
== END | disposition home or self-care (01) ==
LOC: C.LAB 07:04
PROVIDERS: ATTEND Internal Medicine
DX: I48.0 Paroxysmal atrial fibrillation (principal); I12.9 Hypertensive chronic kidney disease with stage 1 through stage 4 chronic kidney disease, or unspecified chronic kidney disease; N18.2 Chronic kidney disease, stage 2 (mild); I25.10 Atherosclerotic heart disease of native coronary artery without angina pectoris; E78.5 Hyperlipidemia, unspecified; D64.9 Anemia, unspecified; E03.9 Hypothyroidism, unspecified; E55.9 Vitamin D deficiency, unspecified; R73.09 Other abnormal glucose

== ENCOUNTER → 2017-07-03 | Outpatient (CLI) | payer BC ==
[2017-07-03 14:59] LABS: URINE APPEARANCE CLEAR (CLEAR); URINE BILIRUBIN NEG (NEG); URINE COLOR YELLOW; URINE EPITHELIAL CELL AUTO 0-5 /lpf (0-5); URINE NITRITE NEG (NEG); URINE PH 6.5 (4.5-7.5); URINE SPECIFIC GRAVITY 1.009 (1.000-1.030); UROBILINOGEN NEG (NEG); ZZUR CULT IF INDIC CLEAN CATCH NO
[2017-07-03 15:02] LABS: MANUAL MICROSCOPIC REQUIRED? NO; REVIEW REQ? NO
[2017-07-03 15:04] LABS: ALT/SGPT 56 U/L (12-78); AST/SGOT 45 U/L (15-37); BLOOD UREA NITROGEN 22 mg/dl (7-18); BUN/CREATININE RATIO 20.9 (10-20); CALCIUM 8.8 mg/dl (8.5-10.1); CARBON DIOXIDE 27 mmol/L (21-32); CHLORIDE 101 mmol/L (98-107); CREATININE 1.04 mg/dl (0.60-1.20); GLUCOSE 98 mg/dl (70-99); POTASSIUM 4.2 mmol/L (3.5-5.1); SODIUM 135 mmol/L (136-145)
[2017-07-03 15:07] LABS: ALB/GLOB RATIO 0.6 (0.9-2); ALKALINE PHOSPHATASE 167 U/L (45-117)
== END | disposition home or self-care (01) ==
LOC: C.LAB 13:30
PROVIDERS: ATTEND Internal Medicine
DX: R35.0 Frequency of micturition (principal); R79.89 Other specified abnormal findings of blood chemistry

== ENCOUNTER → 2017-08-28 | Outpatient (CLI) | payer BC ==
[2017-08-28 13:21] LABS: INR 2.3 (0.9-1.1)
== END | disposition home or self-care (01) ==
LOC: C.LAB1850 11:55
PROVIDERS: ATTEND Physician Assistant Medical
DX: I48.0 Paroxysmal atrial fibrillation (principal)

== ENCOUNTER → 2017-08-30 | Day surgery (SDC) | payer BC ==
[~2017-08-30] VITALS: Ht 177.8 cm; Wt 137.0 kg
[2017-08-30] VITALS (8 sets, daily range): BP systolic 116–193; BP diastolic 52–113; PULSE 58–92; TEMP 36.5; O2SAT 95–98; Ht 177.8 cm; Wt 137.0 kg
[~2017-08-30] MED LIST changes: +LIDOCAINE HCL 2% 2 ML VIAL (20MG/ML) ONE; +PROPOFOL IV EMULSION 10 MG/ML 20 ML VIAL IV ONE
--- NOTE | 2017-08-30 07:48 | History & Physical Bridge Note ---
H&P Re-Evaluation Bridge Note: I have examined the patient, reviewed the History & Physical and in the interval since the performance of the History & Physical I have noted the following changes of clinical significance: No changes noted
--- NOTE | 2017-08-30 07:55 | Cardioversion ---
Electricial Cardioversion Rpt Date of Service: 08/30/2017 Electrical Cardioversion Rprt The patient was brought to the laboratory being NPO after midnight and was identified in the laboratory, connected to the recording apparatus including electrocardiographic monitoring, noninvasive blood pressure monitoring and pulse oximetry. Anteroposterior patch electrodes were placed. The patient was anesthetized by the anesthesia department. Once adequate anesthesia was obtained a synchronized biphasic shock was delivered using 200 J with conversion to a sinus rhythm. The patient awoke from the anesthetic without sequela, will be observed briefly and then discharged.
--- NOTE | 2017-08-30 08:09 | Anesthesiology Progress Note ---
Anesthesia Post Op Note Date & Time Aug 30, 2017 at 08:09 Vital Signs Pain Intensity: 0 Vital Signs Past 12 Hours Date Time Temp Pulse Resp B/P (MAP) Pulse Ox O2 Delivery O2 Flow Rate FiO2 08/30/17 08:07 60 16 127/58 (81) 98 Room Air 08/30/17 07:57 85 16 98 Room Air 08/30/17 07:55 85 16 116/58 98 Nasal Cannula 4 08/30/17 07:51 85 16 116/78 98 Nasal Cannula 4 08/30/17 07:50 85 16 116/78 98 Nasal Cannula 4 08/30/17 07:47 85 16 150/94 98 Nasal Cannula 4 08/30/17 07:06 36.5 92 16 193/113 (139) 95 Room Air Notes Mental Status: alert / awake / arousable, participated in evaluation Pt Amnestic to Procedure: Yes Nausea / Vomiting: adequately controlled Pain: adequately controlled Airway Patency, RR, SpO2: stable & adequate BP & HR: stable & adequate Hydration State: stable & adequate Anesthetic Complications: no major complications apparent
--- NOTE | 2017-08-30 08:28 | Discharge Instructions ---
Discharge Instructions Date of Service Aug 30, 2017. Admission Reason for Admission: Atrial fibrillation Discharge Discharge Diagnosis / Problem: electrical cardioversion Discharge Goals Goal(s): Improve disease control Activity Recommendations Activity Limitations: resume your previous activity . Instructions / Follow-Up Instructions / Follow-Up ACTIVITY RECOMMENDATIONS: * May resume driving tomorrow. SPECIAL CARE: * May apply burn ointment for skin irritation. * Please contact physician for any lightheadedness, dizziness or palpitations. Follow-up: Keep scheduled appointment at the end of August Current Hospital Diet Patient's current hospital diet: AHA Diet (Heart Healthy) Discharge Diet Recommended Diet: AHA Diet (Heart Healthy), Low Sodium Diet (2gm Na) Procedures Procedures Performed: Electrical cardioversion Pending Studies Studies pending at discharge: no Laboratory Results Hemoglobin A1c Test 06/26/17 07:17 Range/Units Estimated Average Glucose 126 mg/dl Hemoglobin A1c 6.0 H 4.5-5.6 % Medical Emergencies . Who to Call and When: Medical Emergencies: If at any time you feel your situation is an emergency, please call 911 immediately. . Non-Emergent Contact Non-Emergency issues call your: Primary Care Provider . . "Provider Documentation" section prepared by Joe Najera. . VTE Core Measure Inpt VTE Proph given/why not?: Warfarin (Coumadin)
== END | disposition home or self-care (01) ==
LOC: C.CATH 06:51
PROVIDERS: ATTEND Internal Medicine Cardiovascular Disease
DX: I48.0 Paroxysmal atrial fibrillation (principal); I25.10 Atherosclerotic heart disease of native coronary artery without angina pectoris; R00.2 Palpitations; E66.9 Obesity, unspecified; E11.42 Type 2 diabetes mellitus with diabetic polyneuropathy; E55.9 Vitamin D deficiency, unspecified; E83.42 Hypomagnesemia; K22.70 Barrett's esophagus without dysplasia; I13.0 Hypertensive heart and chronic kidney disease with heart failure and stage 1 through stage 4 chronic kidney disease, or unspecified chronic kidney disease; I50.9 Heart failure, unspecified; E03.9 Hypothyroidism, unspecified; F41.9 Anxiety disorder, unspecified; N18.2 Chronic kidney disease, stage 2 (mild); E78.5 Hyperlipidemia, unspecified; Z68.42 Body mass index [BMI] 45.0-49.9, adult; Z79.01 Long term (current) use of anticoagulants; Z82.49 Family history of ischemic heart disease and other diseases of the circulatory system; Z83.3 Family history of diabetes mellitus; Z79.899 Other long term (current) drug therapy

== ENCOUNTER → 2017-09-28 | Day surgery (SDC) | payer BC ==
[2017-09-20 08:56] VITALS: Ht 179.1 cm; Wt 142.3 kg
[~2017-09-28] VITALS: Ht 179.1 cm; Wt 142.3 kg
[~2017-09-28] MED LIST changes: -AMIO200T4 PO; -CHOL100040 PO; +CHOL1TAB79 PO
--- NOTE | 2017-09-28 08:56 | Endo History and Physical ---
History & Physical Date of Service: Sep 28, 2017. Chief Complaint: history of polyps Referring Physician: Dr. Sotero Weber History of Present Illness h/o polyps Past Medical History Atrial Fibrillation, Diabetes, Arthritis, Gastrointestinal Disorder, Anxiety, Reflux, High Cholesterol, Heart Disease, Hypertension, Thyroid Disease Past Surgical History Hx Cardiac Surgery: Yes (CARDIAC CATH, CARDIOVERSION) Hx Internal Defibrillator: No Hx Pacemaker: No Hx Abdominal Surgery: Yes (HYSTERECTOMY) Hx of Implantable Prosthesis: No Hx Post-Op Nausea and Vomiting: No Hx Cancer Surgery: No Hx Thoracic Surgery: No Hx Orthopedic: Yes (BILATERAL MEHREEN, LEFT LEG ORIF) Hx Urinary Tract Surgery: No Family History Polyp Social History Smoking Status: Never Smoker Hx Substance Use: Yes (SEE MED LIST) Hx Alcohol Use: No Allergies Coded Allergies: No Known Allergies (Verified , 09/20/17) Current Medications Reported Home Medications Medications Dose Route/Sig Max Daily Dose Days Date Category Dose Instructions D3 2000 (Cholecalciferol) 2,000 Unit Tab 2,000 Units PO HS 09/20/17 Reported Magnesium 250 mg (Magnesium) 1 Tab Tab 3 Tabs PO DAILY 05/25/17 Reported Coumadin (Warfarin Sodium) 3 Mg Tab 3 Mg PO WK 03/07/17 Reported ON SUNDAYS Coumadin (Warfarin Sodium) 2 Mg Tab 2 Mg PO 6XWK 03/07/17 Reported MON THRU SAT HAS INSTRUCTIONS FROM CARDIAC MD FOR PROCEDURE Zestril (Lisinopril) 30 Mg Tab 30 Mg PO QAM 03/07/17 Reported Metoprolol Succinate ER (Metoprolol Succinate) 100 Mg Tabcr 100 Mg PO BID 03/07/17 Reported Levothyroxine Sodium 150 Mcg Tab 150 Mcg PO QAM 03/07/17 Reported Saline Nasal [place] (Saline) 0.65 % Spr RENETTA QAM 08/19/14 Reported Cranberry (Cranberry (Vaccinium Macrocarp) 450 Mg Tab 2 Tab PO QPM 08/19/14 Reported Ativan (Lorazepam) 1 Mg Tab 1 Mg PO TID PRN 06/12/14 Reported Furosemide 20 Mg Tab 20 Mg PO Q2D 04/01/14 Reported Micro-K Ext Rel (Potassium Chloride) 10 Meq Capcr 10 Meq PO Q2D 02/20/14 Reported Lipitor (Atorvastatin Calcium) 80 Mg Tab 80 Mg PO HS 02/10/14 Reported Lucero (Fexofenadine Hcl) 180 Mg Tab 180 Mg PO QAM 02/10/14 Reported Escitalopram Oxalate 20 Mg Tab 20 Mg PO QAM 02/10/14 Reported Prilosec (Omeprazole) 20 Mg Cap 20 Mg PO BID 02/10/14 Reported Buspar (Buspirone Hcl) 15 Mg Tab 15 Mg PO TID 02/10/14 Reported Vital Signs Weight (Kilograms): 142.27 Height (Feet): 5 Height (Inches): 10.5 Date Time Temp Pulse Resp B/P (MAP) Pulse Ox O2 Delivery O2 Flow Rate FiO2 09/28/17 08:08 36.5 88 20 152/89 (110) 94 Room Air Physical Exam General Appearance: no apparent distress Cardiovascular: Heart Auscultation: RRR Abdomen: Inspection & Palpation: soft Assessment and Plan H/o polyps - cscopy
--- NOTE | 2017-09-28 09:51 | Discharge Instructions ---
Endoscopy Patient Instructions Date / Procedure(s) Performed Sep 28, 2017. Colonoscopy Allergy Information Coded Allergies: No Known Allergies (Verified , 09/20/17) Discharge Date / Findings Sep 28, 2017. Mult polyps Medication Instructions Stopped Medication(s): last dose Warfarin on Sunday Resume coumadin today Provider Instructions Activity Restrictions - No exercising or heavy lifting for 24 hours. - Do not drink alcohol the day of the procedure. - Do not drive a car or operate machinery until the day after the procedure. - Do not make any important decisions or sign important papers in 24 hours after the procedure. Following Day: - Return to full activity which may include returning to work/school. Diet Start your diet with liquids and light foods (jello, soup, juice, toast). Then eat your usual diet if not nauseated. Treatment For Common After Affects For mild abdominal pain, bloating, or excessive gas: - Rest - Eat lightly - Lie on right side Follow-Up Information Follow-up with Dr. Sotero Weber as scheduled Anesthesia Information What You Should Know You have had a procedure that required some medicine to reduce anxiety and discomfort. This treatment is called moderate sedation. After receiving the treatment, you may be sleepy, but you will be able to breathe on your own. The effects of the treatment may last for several hours. Follow these instructions along with Activity/Diet recommendations noted above: * Do NOT do anything where dizziness or clumsiness would be dangerous. * Rest quietly at home today, then you can be up and about tomorrow. * Have a responsible person stay with you the rest of today. * You may have had an I.V. today. If so, you may take the dressing off later today. Recommendations Call your doctor if: * Trouble breathing * Continuous vomiting for more than 24 hours * Temperature above 101 degrees * Severe abdominal pain or bloating * Pain not relieved by pain medicine ordered * There is increased drainage or redness from any incision * A large amount of rectal bleeding greater than 2-3 tablespoons. (If you had a polyp/s removed or have hemorrhoids, a small amount of blood - from the rectum is to be expected.) * You have any unanswered questions or concerns. IN THE EVENT OF A SERIOUS EMERGENCY, GO TO THE NEAREST EMERGENCY ROOM Your discharge instructions were prepared by provider oMre Navarro. Patient Instructions Signature Page Lorenza Boswell Patient (or Guardian) Signature/Date: I have read and understand the instructions given to me by my caregivers. Caregiver/RN/Doctor Signature/Date: The above-named patient and/or guardian has received patient instructions on this date. + Original Patient Signature Page (only) stays with chart. Please make copy for patient.
--- NOTE | 2017-09-28 10:03 | Anesthesiology Progress Note ---
Anesthesia Post Op Note Date & Time Sep 28, 2017 at 10:03 Vital Signs Pain Intensity: 0 Vital Signs Past 12 Hours Date Time Temp Pulse Resp B/P (MAP) Pulse Ox O2 Delivery O2 Flow Rate FiO2 09/28/17 09:41 36.0 82 16 104/60 (75) 94 Room Air 09/28/17 08:08 36.5 88 20 152/89 (110) 94 Room Air Notes Mental Status: alert / awake / arousable, participated in evaluation Pt Amnestic to Procedure: Yes Nausea / Vomiting: adequately controlled Pain: adequately controlled Airway Patency, RR, SpO2: stable & adequate BP & HR: stable & adequate Hydration State: stable & adequate Anesthetic Complications: no major complications apparent
[2017-09-28 10:10] VITALS: BP 138/76; PULSE 93; O2SAT 95
--- NOTE | 2017-09-28 11:07 | GI REPORT ---
Procedure Date: 09/28/2017 9:06 AM Procedure: Colonoscopy Indications: High risk colon cancer surveillance: Personal history of colonic polyps Medicines: See the Anesthesia note for documentation of the administered medications Complications: No immediate complications. Estimated Blood Loss: Estimated blood loss: none. Procedure: Pre-Anesthesia Assessment: - ASA Grade Assessment: II - A patient with mild systemic disease. After I obtained informed consent, the scope was passed under direct vision. Throughout the procedure, the patient's blood pressure, pulse, and oxygen saturations were monitored continuously. The scope was introduced through the anus and advanced to the terminal ileum. The colonoscopy was performed without difficulty. The patient tolerated the procedure well. The quality of the bowel preparation was good. Findings: There was moderate erythema of the perianal skin. A 10 mm polyp was found in the hepatic flexure. The polyp was sessile. The polyp was removed with a saline injection-lift technique using a cold snare. Resection and retrieval were complete. To prevent bleeding after the polypectomy, one hemostatic clip was successfully placed. There was no bleeding at the end of the procedure. Two sessile polyps were found in the hepatic flexure. The polyps were 3 to 4 mm in size. These polyps were removed with a cold snare. Resection and retrieval were complete. A 5 mm polyp was found in the descending colon. The polyp was sessile. The polyp was removed with a cold snare. Resection and retrieval were complete. Hemorrhoids were found during retroflexion. Impression: - One 10 mm polyp at the hepatic flexure, removed using injection-lift and a cold snare. Resected and retrieved. Clip was placed. - Two 3 to 4 mm polyps at the hepatic flexure, removed with a cold snare. Resected and retrieved. - One 5 mm polyp in the descending colon, removed with a cold snare. Resected and retrieved. - Hemorrhoids. Recommendation: - Repeat exam in 1 year. - Discharge patient to home. More Dorman M.D. Mroe Dorman MD 09/28/2017 9:52:08 AM This report has been signed electronically. Note Initiated On: 09/28/2017 9:06 AM I attest to the content of the Intraoperative Record and orders documented therein, exceptions below
== END | disposition home or self-care (01) ==
LOC: C.GI 07:37
PROVIDERS: ATTEND Internal Medicine Gastroenterology
DX: Z12.11 Encounter for screening for malignant neoplasm of colon (principal); D12.3 Benign neoplasm of transverse colon; D12.4 Benign neoplasm of descending colon; K64.9 Unspecified hemorrhoids; Z86.010 Personal history of colon polyps; E11.9 Type 2 diabetes mellitus without complications; I25.10 Atherosclerotic heart disease of native coronary artery without angina pectoris; I48.91 Unspecified atrial fibrillation; I10 Essential (primary) hypertension; E78.00 Pure hypercholesterolemia, unspecified; E07.9 Disorder of thyroid, unspecified; F41.9 Anxiety disorder, unspecified; Z90.710 Acquired absence of both cervix and uterus; Z96.643 Presence of artificial hip joint, bilateral; Z79.01 Long term (current) use of anticoagulants; Z98.890 Other specified postprocedural states; Z83.71 Family history of colonic polyps; K21.9 Gastro-esophageal reflux disease without esophagitis

== ENCOUNTER → 2017-12-12 | Outpatient (CLI) | payer BC ==
[~2017-12-12] MED LIST changes: -LIDOCAINE HCL 2% 2 ML VIAL (20MG/ML) ONE; +LISI30TA3 PO; -LSNP/30 PO; -PROPOFOL IV EMULSION 10 MG/ML 20 ML VIAL IV ONE; +SALI-3 NAE; -SALI1SPR3 NAE
== END | disposition home or self-care (01) ==
LOC: C.LAB 13:40
PROVIDERS: ATTEND Internal Medicine Cardiovascular Disease
DX: Z79.899 Other long term (current) drug therapy (principal)

== ENCOUNTER → 2018-02-12 | Outpatient (CLI) | payer BC | END | disposition home or self-care (01) | LOC: C.LABSPEC 16:59 | PROVIDERS: ATTEND Urology | DX: N39.0 Urinary tract infection, site not specified (principal); R35.0 Frequency of micturition ==

== ENCOUNTER → 2018-02-19 | Outpatient (CLI) | payer BC | END | disposition home or self-care (01) | LOC: C.LAB 09:38 | PROVIDERS: ATTEND Internal Medicine | DX: N39.0 Urinary tract infection, site not specified (principal) ==

== ENCOUNTER 2019-05-01 07:50 | Inpatient (IN) ==
[2019-05-01 08:39] LABS: Basophils # (auto) 0.01 K/uL (0-0.2); Basophils % (auto) 0.1 %; Eosinophils # (auto) 0.03 K/uL (0-0.5); Eosinophils % (auto) 0.3 %; Hematocrit (blood only) 35.3 % (37-47); Hemoglobin 11.8 g/dL (12.0-16.0); Immature Granulocytes # (auto) 0.01 K/uL (0.00-0.02); Immature Granulocytes % (auto) 0.1 %; Lymphocytes # (auto) 0.59 K/uL (1.2-3.4); Lymphocytes % (auto) 5.5 %; Mean Corpuscular Hemoglobin 28.1 pg (25-34); Mean Corpuscular Hgb Conc 33.4 g/dL (32-36); Mean Platelet Volume 10.5 fL (7.4-10.4); Monocytes # (auto) 0.37 K/uL (0.11-0.59); Monocytes % (auto) 3.4 %; Neutrophils % (auto) 90.6 %; Platelet Count 350 K/uL (130-400); RDW Coefficient of Variation 20.1 % (11.5-14.5); RDW Standard Deviation 61.8 fL (36.4-46.3); White Blood Count 10.81 K/uL (4.8-10.8)
[2019-05-01 08:43] LABS: Appearance Urine Cloudy (Clear); Bacteria Urine Automated 4+ (Negative); Bilirubin Urine Negative (Negative); Blood Urine Negative (Negative); Color Urine Dark Yellow; Glucose Urine UA Negative (Negative); Ketones Urine Trace (Negative); Leukocyte Esterase Urine 1+ (Negative); Nitrite Urine Negative (Negative); Protein Urine Trace (Negative); RBC Urine Automated 0-4 /hpf (0-4); Urobilinogen Urine Negative (Negative); WBC Urine Automated >30 /hpf (0-5)
[2019-05-01] MEDS ORDERED: SODIUM CHLORIDE 0.9% 1000ML 1,000 ML IV SCH (08:45)
[2019-05-01 08:48] LABS: Partial Thromboplastin Ratio 1.2; Partial Thromboplastin Time 33.8 Seconds (21.0-31.0)
[2019-05-01 08:54] LABS: Albumin Level 2.2 gm/dl (3.4-5.0); Aspartate Aminotransferase 15 U/L (15-37); BUN Creatinine Ratio 17.6 (10-20); Blood Urea Nitrogen 48 mg/dl (7-18); Calcium 8.4 mg/dl (8.5-10.1); Carbon Dioxide 23 mmol/L (21-32); Chloride 99 mmol/L (98-107); Est GFR (African American) 19.7; Glucose 131 mg/dl (70-99); Lipase 55 U/L (73-393); Magnesium 3.1 mg/dl (1.8-2.4); Potassium 5.4 mmol/L (3.5-5.1); Sodium 130 mmol/L (136-145)
--- NOTE | 2019-05-01 08:58 | XRay Report ---
XR chest 1V portable CLINICAL HISTORY: weakness COMPARISON STUDY: 01/02/2019 FINDINGS: The heart is mildly enlarged. There is a left subclavian A-Port catheter. The tip projects over the right atrium. There are linear mid to lower lung zone opacities, likely representing subsegm ental atelectasis. There is no failure. There are no pleural effusions.[ IMPRESSION: Bilateral subsegmental atelectatic change. Stable cardiomegaly. Electronically signed by: Beltran Kovacs M.D. 05/01/2019 8:57 AM
[2019-05-01 09:04] LABS: Alanine Aminotransferase 7 U/L (12-78); Albumin Globulin Ratio 0.6 (0.9-2); Alkaline Phosphatase 126 U/L (45-117); Bilirubin,Total 0.6 mg/dl (0.2-1); Globulin 3.9 gm/dl (2.5-4.0); Total Protein 6.1 gm/dl (6.4-8.2); Troponin I < 0.015 ng/ml (0-0.045)
[2019-05-01 09:16] LABS: T4 Free Thyroxine 1.13 ng/dl (0.8-1.6)
[2019-05-01 09:24] LABS: Echinocytes 1+
[2019-05-01] MEDS ORDERED: cefTRIAXone SODIUM 2,000 MG/70 ML BAG IV STA (09:24)
[2019-05-01] MEDS ORDERED: LORazepam 1 MG TAB PO PRN (09:51)
[2019-05-01] MEDS ORDERED: PROCHLORPERAZINE MALEATE 10 MG TAB PO PRN (09:51)
--- NOTE | 2019-05-01 10:17 | Emergency Department Note ---
History of Present Illness General Chief complaint: Weakness Time Seen by Provider: 05/01/19 08:11 History of Present Illness This is a 69-year-old female with a very complex past medical history to include that of metastatic appendiceal cancer, A. fib creatinine anticoagulation, CHF, hypertension, hypercholesterolemia, hypothyroidism, chronic kidney disease, lymphedema, among others that presents to the emergency department via ambulance accompanied by with complaints of "weakness". The patient notes that she was diagnosed with appendiceal cancer last year, and was on chemotherapy up until 3 weeks ago. She notes that this morning she was sitting on the toilet, when she went to stand up felt too weak to do so in the ambulance was summoned. She denies any pain at this time. No chest pain, shortness of breath, fevers or chills. She notes that she is not on hospice. Home Medications Home Medications Medication Instructions Recorded Confirmed Type cholecalciferol (vitamin D3) 2,000 unit PO QPM 05/20/18 05/01/19 History [Vitamin D3] fexofenadine [Lucero Allergy] 180 mg PO QAM 05/20/18 05/01/19 History levothyroxine 150 mcg PO QAM 05/20/18 05/01/19 History magnesium 250 mg PO TID 05/20/18 05/01/19 History metoprolol succinate 100 mg PO BID 05/20/18 05/01/19 History omeprazole 20 mg PO BID 05/20/18 05/01/19 History atorvastatin 80 mg tablet 80 mg PO QPM 02/19/19 05/01/19 History ondansetron HCl 8 mg tablet 8 mg PO Q8H tab 02/20/19 05/01/19 History prochlorperazine maleate 10 mg 10 mg PO Q8H PRN 02/20/19 05/01/19 History tablet lorazepam 1 mg tablet 1 mg PO TID #270 tab 03/04/19 05/01/19 Rx apixaban 5 mg tablet 5 mg PO BID #180 tab 03/20/19 05/01/19 Rx diltiazem ER (XR/XT) 180 mg 180 mg PO QAM #90 cap 03/28/19 05/01/19 Rx capsule,extended release 24 hr, controlled buspirone 15 mg tablet 15 mg PO TID #90 tab 04/25/19 05/01/19 Rx furosemide 20 mg tablet 40 mg PO DAILY #60 tab 04/30/19 05/01/19 Rx escitalopram oxalate [Lexapro] 20 mg PO QAM 05/01/19 05/01/19 History potassium chloride 10 meq PO Q2D 05/01/19 05/01/19 History Allergies Allergy/AdvReac Type Severity Reaction Status Date / Time tree and shrub pollen Allergy Unknown Unknown Verified 05/01/19 09:39 Past Med/Surg History Medical History Vitamin D deficiency (Acute) Urinary frequency (Acute) Stress incontinence in female (Acute) Spinal stenosis (Acute) Recurrent urinary tract infection (Acute) Polyneuropathy (Acute) Nephrolithiasis (Acute) Lymphedema (Acute) 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 High-grade mucinous adenocarcinoma. 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- OBSERVATION RECOMMENDED PER RECORDS Leg laceration (Resolved) Acute cholangitis Anemia CHRONIC Cancer APPENDICEAL TUMOR (REASON FOR PROCEDURE) Depression Footdrop LEFT ?NERVE INJURY S/P LEFT MEHREEN- WEARS LEG/FOOT BRACE GERD (gastroesophageal reflux disease) Hiatal hernia "SMALL" Morbid obesity Osteoarthritis Urinary tract infection HX RECURRENT UTI'S Surgical History History of cardiac catheterization 17 YRS AGO= NO STENTS History of ERCP History of appendectomy CANCER DX'D History of bowel resection RIGHT HEMICOLECTOMY WITH ILEOCOLOSTOMY, PRIMARY ANASTOMOSIS (07/2018) History of hysterectomy TOTAL History of laparoscopic cholecystectomy History of open reduction and internal fixation (ORIF) procedure RIGHT TIBIA History of total hip arthroplasty B/L Family History Son Family history of diabetes mellitus Mother Coronary heart disease Father Breast cancer Sister Breast cancer Social History Preferred Language: Kinyarwanda Communication Ability: Effective Visual Impairment: No Limitations Hearing Ability: Normal Group Cio Required: No Beliefs That Will Affect Care: None marital status: Current Living Situation: Spouse Other Information That Helps Us Care for You: No Feels Safe at Home: Yes Safety Concerns: Feels Safe At This Time Smoking Status: Never smoker Second Hand Exposure: No ; Hx Alcohol Use: No Hx Substance Use: No Childhood Exposure to Second-Hand Smoke: Yes Dental Care, Regularly: Yes Seatbelt Use: always Sunscreen Use: Yes Review of Systems A total of 10 systems reviewed and were otherwise negative Physical Exam Vital Signs Vital Signs - 24 hr 05/01/19 08:12 05/01/19 08:17 05/01/19 08:52 Temperature 36.6 C Temperature Source Oral Sepsis Recent Fever Within 48 Hours No Sepsis Action Taken by Nursing No Action Required Pulse Rate 86 106 H Pulse Rate [Apical] Pulse Rhythm Irregular Irregular Pulse Strength Weak Respiratory Rate 20 Respiratory Effort / Characteristics Non-Labored Respiratory Depth Normal Blood Pressure 120/85 Blood Pressure [Right Arm] Blood Pressure Mean 96 Blood Pressure Mean [Right Arm] Blood Pressure Position Lying Pulse Oximetry 96 96 95 Oxygen Delivery Method Room Air Room Air Room Air 05/01/19 09:24 Temperature Temperature Source Sepsis Recent Fever Within 48 Hours Sepsis Action Taken by Nursing Pulse Rate Pulse Rate [Apical] 100 H Pulse Rhythm Pulse Strength Respiratory Rate 16 Respiratory Effort / Characteristics Respiratory Depth Blood Pressure Blood Pressure [Right Arm] 111/87 Blood Pressure Mean Blood Pressure Mean [Right Arm] 95 Blood Pressure Position Pulse Oximetry 97 Oxygen Delivery Method Room Air VITAL SIGNS - Vital signs and nursing notes were reviewed. Stable and afebrile. GENERAL - 69-year-old female appearing her stated age who is in no acute distress. Patient does appear dry. Communicates well with provider and answers questions appropriately. SKIN - Without rashes. No meningeal or petechial rash. HEAD - NC/AT. EYES - PERRL with EOMI bilaterally. Sclera anicteric. Palpebral conjunctiva pink and moist with no injection noted. EARS - No deformities of external structures noted on gross examination bilaterally. NOSE - Midline and without cyanosis. No epistaxis or purulent drainage noted. MOUTH/OROPHARYNX - Without perioral cyanosis. NECK - Neck with FROM. Supple to palpation. No nuchal rigidity. LUNGS - Chest wall symmetric without accessory muscle use, intercostals ret ractions, or central cyanosis. Normal vesicular breath sounds CTA B/L. No wheezes, rales, or rhonchi appreciated. CARDIAC -irregular rate and rhythm. ABDOMEN - Abdominal contour normal without pulsations or visible masses. No tenderness on exam. EXTREMITIES - No clubbing or peripheral cyanosis. NEUROLOGIC - Cranial nerves II through XII grossly intact. PSYCH - A&Ox3 and cooperates fully with examiner. Pt is very pleasant and interacts well with examiner. Course Administered Medications Sodium Chloride (Nss 1000ml) 1,000 mls @ 250 mls/hr IV .Q4H ROLAN Stop: 05/01/19 12:44 Last Admin: 05/01/19 08:40 Dose: 250 mls/hr Documented by: [id number] Medical Decision Making Laboratory Data Result diagrams: 05/01/19 08:20 05/01/19 08:20 Lab Results 05/01/19 05/01/19 05/01/19 Range/Units 08:20 08:20 08:20 WBC 10.81 H (4.8-10.8) K/uL RBC 4.20 (4.2-5.4) M/uL Hgb 11.8 L (12.0-16.0) g/dL Hct 35.3 L (37-47) % MCV 84.0 (80-100) fL MCH 28.1 (25-34) pg MCHC 33.4 (32-36) g/dL RDW Std Deviation 61.8 H (36.4-46.3) fL RDW Coeff of Sahil 20.1 H (11.5-14.5) % Plt Count 350 (130-400) K/uL MPV 10.5 H (7.4-10.4) fL Immature Gran % (Auto) 0.1 % Neut % (Auto) 90.6 % Lymph % (Auto) 5.5 % [place] % (Auto) 3.4 % Eos % (Auto) 0.3 % Baso % (Auto) 0.1 % Immature Gran # (Auto) 0.01 (0.00-0.02) K/uL Neut # (Auto) 9.80 H (1.4-6.5) K/uL Lymph # (Auto) 0.59 L (1.2-3.4) K/uL [place] # (Auto) 0.37 (0.11-0.59) K/uL Eos # (Auto) 0.03 (0-0.5) K/uL Baso # (Auto) 0.01 (0-0.2) K/uL Echinocytes 1+ APTT 33.8 H (21.0-31.0) Seconds PTT Ratio 1.2 Sodium 130 L (136-145) mmol/L Potassium 5.4 H (3.5-5.1) mmol/L Chloride 99 (98-107) mmol/L Carbon Dioxide 23 (21-32) mmol/L Anion Gap 8.0 (3-11) BUN 48 H (7-18) mg/dl Creatinine 2.72 H (0.6-1.2) mg/dl Est Cr Clr Drug Dosing 31.0 ml/min Est GFR ( Amer) 19.7 Est GFR (Non-Af Amer) 17.0 BUN/Creatinine Ratio 17.6 (10-20) Glucose 131 H (70-99) mg/dl Lactate (0.4-2.0) mmol/L Calcium 8.4 L (8.5-10.1) mg/dl Magnesium 3.1 H (1.8-2.4) mg/dl Total Bilirubin 0.6 (0.2-1) mg/dl AST 15 (15-37) U/L ALT 7 L (12-78) U/L Alkaline Phosphatase 126 H (45-117) U/L Troponin I < 0.015 (0-0.045) ng/ml Total Protein 6.1 L (6.4-8.2) gm/dl Albumin 2.2 L (3.4-5.0) gm/dl Globulin 3.9 (2.5-4.0) gm/dl Albumin/Globulin Ratio 0.6 L (0.9-2) Lipase 55 L (73-393) U/L TSH 32.700 H (0.300-4.500) uIu/ml Free T4 1.13 (0.8-1.6) ng/dl Urine Color Urine Appearance (Clear) Urine pH (4.5-7.5) Ur Specific [place] (1.000-1.030) Urine Protein (Negative) Urine Glucose (UA) (Negative) Urine Ketones (Negative) Urine Blood (Negative) Urine Nitrite (Negative) Urine Bilirubin (Negative) Urine Urobilinogen (Negative) Ur Leukocyte Esterase (Negative) Urine WBC (Auto) (0-5) /hpf Urine RBC (Auto) (0-4) /hpf U Hyaline Cast (Auto) (0-5) /lpf U Epithel Cells (Auto) (0-5) /lpf Urine Bacteria (Auto) (Negative) Granular Casts (0) /lpf 05/01/19 05/01/19 Range/Units 08:23 09:21 WBC (4.8-10.8) K/uL RBC (4.2-5.4) M/uL Hgb (12.0-16.0) g/dL Hct (37-47) % MCV (80-100) fL MCH (25-34) pg MCHC (32-36) g/dL RDW Std Deviation (36.4-46.3) fL RDW Coeff of Sahil (11.5-14.5) % Plt Count (130-400) K/uL MPV (7.4-10.4) fL Immature Gran % (Auto) % Neut % (Auto) % Lymph % (Auto) % [place] % (Auto) % Eos % (Auto) % Baso % (Auto) % Immature Gran # (Auto) (0.00-0.02) K/uL Neut # (Auto) (1.4-6.5) K/uL Lymph # (Auto) (1.2-3.4) K/uL [place] # (Auto) (0.11-0.59) K/uL Eos # (Auto) (0-0.5) K/uL Baso # (Auto) (0-0.2) K/uL Echinocytes APTT (21.0-31.0) Seconds PTT Ratio Sodium (136-145) mmol/L Potassium (3.5-5.1) mmol/L Chloride (98-107) mmol/L Carbon Dioxide (21-32) mmol/L Anion Gap (3-11) BUN (7-18) mg/dl Creatinine (0.6-1.2) mg/dl Est Cr Clr Drug Dosing ml/min Est GFR ( Amer) Est GFR (Non-Af Amer) BUN/Creatinine Ratio (10-20) Glucose (70-99) mg/dl Lactate 1.7 (0.4-2.0) mmol/L Calcium (8.5-10.1) mg/dl Magnesium (1.8-2.4) mg/dl Total Bilirubin (0.2-1) mg/dl AST (15-37) U/L ALT (12-78) U/L Alkaline Phosphatase (45-117) U/L Troponin I (0-0.045) ng/ml Total Protein (6.4-8.2) gm/dl Albumin (3.4-5.0) gm/dl Globulin (2.5-4.0) gm/dl Albumin/Globulin Ratio (0.9-2) Lipase (73-393) U/L TSH (0.300-4.500) uIu/ml Free T4 (0.8-1.6) ng/dl Urine Color Dark Yellow Urine Appearance Cloudy A (Clear) Urine pH 5.0 (4.5-7.5) Ur Specific [place] 1.020 (1.000-1.030) Urine Protein Trace H (Negative) Urine Glucose (UA) Negative (Negative) Urine Ketones Trace H (Negative) Urine Blood Negative (Negative) Urine Nitrite Negative (Negative) Urine Bilirubin Negative (Negative) Urine Urobilinogen Negative (Negative) Ur Leukocyte Esterase 1+ H (Negative) Urine WBC (Auto) >30 H (0-5) /hpf Urine RBC (Auto) 0-4 (0-4) /hpf U Hyaline Cast (Auto) 10-30 H (0-5) /lpf U Epithel Cells (Auto) 5-10 H (0-5) /lpf Urine Bacteria (Auto) 4+ H (Negative) Granular Casts 1-5 H (0) /lpf Imaging Data Radiologist's Impression: XR chest 1V portable CLINICAL HISTORY: weakness COMPARISON STUDY: 01/02/2019 FINDINGS: The heart is mildly enlarged. There is a left subclavian A-Port catheter. The tip projects over the right atrium. There are linear mid to lower lung zone opacities, likely representing subsegmental atelectasis. There is no failure. There are no pleural effusions.[ IMPRESSION: Bilateral subsegmental atelectatic change. Stable cardiomegaly. Electronically signed by: Beltran Kovacs M.D. 05/01/2019 8:57 AM MDM Narrative Patient was seen and evaluated as above in room B2. Review was performed of nursing notes and vital signs. After obtaining a thorough history and physical examination the above work up was performed. She has a very complex past medical history. She is nontoxic on examination. Vital signs are stable.. In my interpretation, EKG reveals a flutter, rate of 77 bpm. No evidence of MO in this exam. QTc 443. This was compared to previous EKG of January 02, 2019 and atrial fibrillation has been replaced by atrial flutter. I will note the per history atrial fibrillation is not new. Patient is also complaining of some weakness. She appears to be dry and dehydrated. I will also note that she stopped her chemotherapy and per review of her previous family doctor visit abou t 1 week ago and discussions were had regarding end-of-life care and hospice versus palliative care. Patient is currently not on hospice. She denies any complaints at this time other than persistent diarrhea since her surgery a year ago as well as some weakness. There is no focal neurologic deficit on examination. IV access was established, and the above work-up was performed. CBC reveals slight leukocytosis of 10.81 without any emergent anemia. Sodium of 130 potassium 5.4 with creatinine of 2.72. Calcium low at 8.4 magnesium high at 3.1. Troponin negative. TSH 32.70. Lactic is within normal limits. Urinalysis is concerning for possible infection. Patient was catheterized with [place] prior to my evaluation of the patient. I do believe that given the patient's endorgan failure, presentation here today, and scenario that further evaluation and management is warranted in the inpatient setting. I discussed this with Dr. Carey. IV antibiotics were ordered but held for this immediate time pending evaluation by the hospitalist. Please refer to further documentation regarding the patients stay. Case was discussed with the attending physician. I attest that I have personally reviewed the patient medication list. I attest that I have reviewed the patient's blood pressure and it was found to be elevated likely secondary to presentation here today. GCS: 15 In the evaluation and treatment of this patient the following differential diagnoses were entertained: Endorgan failure, electro light disturbance, infection, sepsis, bacteremia, thyroid ab normality, MO, PE, pneumonia, infectious etiology, among others. Impression & Plan Weakness generalized, GORDON (acute kidney injury), Acute hyperkalemia, Hyper magnesemia, Urine findings abnormal Discharge Plan Visit Data Chief Complaint: Weakness ED Provider: Dawn Perry ED Midlevel Provider: Sammy Yoo Discharge Problem: Weakness generalized, GORDON (acute kidney injury), Acute hyperkalemia, Hypermagnesemia, Urine findings abnormal Patient Disposition: Admitted As Inpatient Condition: Fair Forms Stand Alone Forms: [facility] Prescriptions Prescriptions: No Action lorazepam 1 mg tablet 1 mg PO TID Qty: 270 RF: 0 Eliquis 5 mg tablet 5 mg PO BID Qty: 180 RF: 3 diltiazem HCl 180 mg capsule,ext.rel 24h degradable 180 mg PO QAM Qty: 90 RF: 3 furosemide 20 mg tablet 40 mg PO DAILY Qty: 60 RF: 3 ondansetron HCl [Zofran] 8 mg tablet 8 mg PO Q8H RF: 0 prochlorperazine maleate 10 mg tablet 10 mg PO Q8H PRN (Reason: Nausea) RF: 0 buspirone 15 mg tablet 15 mg PO TID Qty: 90 RF: 4 fexofenadine [Lucero Allergy] 180 mg Tablet 180 mg PO QAM RF: 0 levothyroxine 150 mcg Tablet 150 mcg PO QAM RF: 0 magnesium 250 mg Tablet 250 mg PO TID RF: 0 metoprolol succinate 100 mg Tablet Extended Release 24 Hr 100 mg PO BID RF: 0 omeprazole 20 mg Capsule,Delayed Release(Dr/Ec) 20 mg PO BID RF: 0 cholecalciferol (vitamin D3) [Vitamin D3] 2,000 unit Tablet 2,000 unit PO QPM RF: 0 atorvastatin [Lipitor] 80 mg tablet 80 mg PO QPM RF: 0 potassium chloride 10 mEq tablet extended release 10 meq PO Q2D RF: 0 escitalopram oxalate [Lexapro] 20 mg tablet 20 mg PO QAM RF: 0 Referrals Referrals: Sotero Weber MD [Primary Care Provider] -
[2019-05-01] MEDS ORDERED: NURSING DECISION MEDICATION ONE (11:03)
[2019-05-01] MEDS: LEVOTHYROXINE SODIUM 150 MCG TABLET PO SCH (12:05)
[2019-05-01] MEDS: MAGNESIUM OXIDE 400 MG TAB PO SCH ×2 (12:05→20:37)
[2019-05-01] MEDS: ESCITALOPRAM OXALATE 20 MG TAB PO SCH (12:05)
[2019-05-01] MEDS: BusPIRone 15 MG TAB PO SCH ×2 (12:06→20:38)
[2019-05-01] MEDS: APIXABAN 5 MG TABLET PO SCH ×2 (12:06→20:36)
[2019-05-01] MEDS: PANTOprazole 40 MG TAB PO SCH ×2 (12:06→20:38)
[2019-05-01] MEDS ORDERED: HEPARIN 100 UNIT/ML 5ML FLUSH ONE (12:29)
--- NOTE | 2019-05-01 17:30 | Palliative Care Consultation ---
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 Patient underwent hemicolectomy with ileostomy and reanastomosis in July 2018. Patient presented to the emergency room earlier this morning due to increased weakness- patient reports feeling increasingly weak over the past several days, she required a lift assist from EMS a few days ago, at this a.m. she was in the bathroom and could not get up off the toilet. Patient was having increased edema with weeping of the lower extremities-she was placed on Lasix by her PCP- she took 1 dose yesterday. Patient was scheduled to see Dr. Gonzalez in oncology today for follow-up of her lab work and to discuss treatment options. Patient did not tolerate chemo well, had been started on a trial of Xeloda-started on 03/22-did not tolerate due to severe diarrhea. Patient has continued to have diarrhea since her surgery. Prior to starting Xeloda patient had a CT scan that showed new mesenteric nodules as well as carcinomatosis. Patient also has a past medical history significant for chronic A. fib, CAD, frequent UTIs-urine on admission was equivocal with negative nitrates but positive leukocytes-culture pending. Patient seen and examined in room 455 along with her and daughter, Maricruz. Patient would like to see if her weakness can improve-she has electr olyte imbalance as well as increased BUN and creatinine, her TSH which had been within normal limits since 2017, came back at 32.7. Patient states she has not missed any doses of her Synthroid. Patient was to see Dr. Gonzalez to follow-up her CEA-her CEA on 03/26 was 99.2, on 04/28 was 232.6. Discussed with patient and family progression of her underlying disease and poor tolerance of chemo. Discussed going home with hospice care- patient would like to speak with Dr. Gonzalez prior to enrolling. Discussed at length with family patient's needs at home that can only partially be met with hospice staff. Patient's daughter, Maricruz is limited in the care she can provide to her mother due to her requiring care for ALS. Patient has a second daughter who lives in the area. Patient reports her has been doing most of her care at home , and is concerned with him being able to provide care as her needs to increase. Discussed at length going home with hospice care and the impact on her other family members including her grandchildren and great-grandchildren, ranging in age from 3 to their 30s-discussed in detail ways to create good memories during this period of time with her grandchildren and great-grandchildren. Patient son-in-law is currently with [facility] home health, she also had a friend who was cared for by [facility] hospice-we will ask case management to follow-up with the family in the morning to assist with picking of hospice agency. Patient's daughter, Maricruz can be reached at [phone] Gonzalez-he will plan to see patient and family in the a.m. -Goals of care discussion-patient is currently a DNR, her goal is to improve her strength if possible and then return home with hospice care. Notify Dr. Gonzalez of her admission-he is planning to see the patient in the a.m. -Generalized [id number]-QGR and creatinine are elevated-only received 1-2 doses of Lasix, may be intravascularly volume depleted despite increased lymphedema. Possible UTI-culture pending as well as disease progression. 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 Dr. bautista to see in a.m. -Lymphedema-chronic, recent increase. Patient was having weeping lower extremity edema at home-was started on Lasix, only received 1-2 doses. Given patient's current renal function and low albumin would be very difficult to effectively diurese -We will have case management week with family in the a.m. to make hospice referral once family chooses agency. Will continue to follow and assist patient and family with medical decision making. 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 Patient underwent hemicolectomy with ileostomy and reanastomosis in July 2018. Patient presented to the emergency room earlier this morning due to increased weakness- patient reports feeling increasingly weak over the past several days, she required a lift assist from EMS a few days ago, at this a.m. she was in the bathroom and could not get up off the toilet. Patient was having increased edema with weeping of the lower extremities-she was placed on Lasix by her PCP- she took 1 dose yesterday. Patient was scheduled to see Dr. Gonzalez in oncology today for follow-up of her lab work and to discuss treatment options. Patient did not tolerate chemo well, had been started on a trial of Xeloda-started on 03/22-did not tolerate due to severe diarrhea. Patient has continued to have diarrhea since her surgery. Prior to starting Xeloda patient had a CT scan that showed new mesenteric nodules as well as carcinomatosis. Patient also has a past medical history significant for chronic A. fib, CAD, frequent UTIs-urine on admission was equivocal with negative nitrates but positive leukocytes-culture pending. Patient seen and examined in room 455 along with her and daughter, Maricruz. Patient would like to see if her weakness can improve-she has cari ctrolyte imbalance as well as increased BUN and creatinine, her TSH which had been within normal limits since 2017, came back at 32.7. Patient states she has not missed any doses of her Synthroid. Patient was to see Dr. Gonzalez to follow-up her CEA-her CEA on 03/26 was 99.2, on 04/28 was 232.6. Discussed with patient and family progression of her underlying disease and poor tolerance of chemo. Discussed going home with hospice care- patient would like to speak with Dr. Gonzalez prior to enrolling. Discussed at length with family patient's needs at home that can only partially be met with hospice staff. Patient's daughter, Maricruz is limited in the care she can provide to her mother due to her requiring care for ALS. Patient has a second daughter who lives in the area. Patient reports her has been doing most of her care at home , and is concerned with him being able to provide care as her needs to increase. Discussed at length going home with hospice care and the impact on her other family members including her grandchildren and great-grandchildren, ranging in age from 3 to their 30s-discussed in detail ways to create good memories during this period of time with her grandchildren and great-grandchildren. Patient son-in-law is currently with [facility] home health, she also had a friend who was cared for by [facility] hospice-we will ask case management to follow-up with the family in the morning to assist with picking of hospice agency. Patient's daughter, Maricruz can be reached at [phone] Gonzalez-he will plan to see patient and family in the a.m. Allergies Allergy/AdvReac Type Severity Reaction Status Date / Time tree and shrub pollen Allergy Unknown Unknown Verified 05/01/19 09:39 Home Medications Home Medications Medication Instructions Recorded Confirmed Type cholecalciferol (vitamin D3) 2,000 unit PO QPM 05/20/18 05/01/19 History [Vitamin D3] fexofenadine [Lucero Allergy] 180 mg PO QAM 05/20/18 05/01/19 History levothyroxine 150 mcg PO QAM 05/20/18 05/01/19 History magnesium 250 mg PO TID 05/20/18 05/01/19 History metoprolol succinate 100 mg PO BID 05/20/18 05/01/19 History omeprazole 20 mg PO BID 05/20/18 05/01/19 History atorvastatin 80 mg tablet 80 mg PO QPM 02/19/19 05/01/19 History ondansetron HCl 8 mg tablet 8 mg PO Q8H tab 02/20/19 05/01/19 History prochlorperazine maleate 10 mg 10 mg PO Q8H PRN 02/20/19 05/01/19 History tablet lorazepam 1 mg tablet 1 mg PO TID #270 tab 03/04/19 05/01/19 Rx apixaban 5 mg tablet 5 mg PO BID #180 tab 03/20/19 05/01/19 Rx diltiazem ER (XR/XT) 180 mg 180 mg PO QAM #90 cap 03/28/19 05/01/19 Rx capsule,extended release 24 hr, controlled buspirone 15 mg tablet 15 mg PO TID #90 tab 04/25/19 05/01/19 Rx furosemide 20 mg tablet 40 mg PO DAILY #60 tab 04/30/19 05/01/19 Rx escitalopram oxalate [Lexapro] 20 mg PO QAM 05/01/19 05/01/19 History potassium chloride 10 meq PO Q2D 05/01/19 05/01/19 History Patient History Medical History Vitamin D deficiency (Acute) Urinary frequency (Acute) Stress incontinence in female (Acute) Spinal stenosis (Acute) Recurrent urinary tract infection (Acute) Polyneuropathy (Acute) Nephrolithiasis (Acute) Lymphedema (Acute) 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 High-grade mucinous adenocarcinoma. 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- OBSERVATION RECOMMENDED PER RECORDS Leg laceration (Resolved) Acute cholangitis Anemia CHRONIC Cancer APPENDICEAL TUMOR (REASON FOR PROCEDURE) Depression Footdrop LEFT ?NERVE INJURY S/P LEFT MEHREEN- WEARS LEG/FOOT BRACE GERD (gastroesophageal reflux disease) Hiatal hernia "SMALL" Morbid obesity Osteoarthritis Urinary tract infection HX RECURRENT UTI'S Surgical History History of cardiac catheterization 17 YRS AGO= NO STENTS History of ERCP History of appendectomy CANCER DX'D History of bowel resection RIGHT HEMICOLECTOMY WITH ILEOCOLOSTOMY, PRIMARY ANASTOMOSIS (07/2018) History of hysterectomy TOTAL History of laparoscopic cholecystectomy History of open reduction and internal fixation (ORIF) procedure RIGHT TIBIA History of total hip arthroplasty B/L Family History Son Family history of diabetes mellitus Mother Coronary heart disease Father Breast cancer Sister Breast cancer Social History Preferred Language: Iranian Communication Ability: Effective Visual Impairment: No Limitations Hearing Ability: Normal Industrial Design Intern Required: No Beliefs That Will Affect Care: None marital status: Current Living Situation: Spouse Other Information That Helps Us Care for You: No Feels Safe at Home: Yes Safety Concerns: Feels Safe At This Time Smoking Status: Never smoker Second Hand Exposure: No ; Hx Alcohol Use: No Hx Substance Use: No Childhood Exposure to Second-Hand Smoke: Yes Dental Care, Regularly: Yes Seatbelt Use: always Sunscreen Use: Yes Review of Systems Constitutional: + fatigue and + weakness Eyes: no problem reported Ear, Nose, Mouth, Throat: Mild LA POSTA Respiratory: + dyspnea on exertion Cardiovascular: + dyspnea on exertion and + edema Gastrointestinal: + diarrhea/loose stools Genitourinary: Negative for urinary tract infection symptoms Musculoskeletal: + muscle weakness Integumentary: Pale complexion Neurologic: History of spinal stenosis-pain in both legs Psychiatric: no problem reported Endocrine: Hypothyroid Physical Exam Physical Exam: PE: Patient awake and alert, fatigued HEENT: EOMI, mild LA POSTA Respirations: Mildly labored with prolonged conversation CV: Irregular rhythm, normal rate, positive lower extremity edema Abdomen: Soft, nontender Extremities: Generalized weakness Neuro: Alert and oriented x4 Psych: Appropriate mood and affect Results & Data Vital Signs (Past 12 Hours) Vital Signs Temp Pulse Pulse Pulse Resp BP BP 05/01/19 15:56 97.2 F L 85 16 116/80 05/01/19 11:10 97.5 F L 74 16 122/85 05/01/19 10:20 97.9 F 66 18 05/01/19 09:24 100 H 16 05/01/19 08:52 106 H 05/01/19 08:17 05/01/19 08:12 97.9 F 86 20 120/85 BP Pulse Ox 05/01/19 15:56 94 05/01/19 11:10 95 05/01/19 10:20 113/77 95 05/01/19 09:24 111/87 97 05/01/19 08:52 95 05/01/19 08:17 96 05/01/19 08:12 96 PG Care Time/CCT Total # of Minutes Spent Total Time Spent with Patient: Total time spent is greater than 50% in coordination of care (as documented) at patient's floor/unit and/or counseling patient: Prolonged Care Time Prolonged Care Time: Yes Total Prolonged Care Time: 30 Critical Care Time Prolonged Care Time Prolonged Care Time: Yes Total Prolonged Care Time: 30 100 Time Spent Attending Total time spent 100 minutes with greater than 50% of time spent at bedside discussing in detail patient's options for returning home, collaborating with case management as well as Dr. Gonzalez and attending physician Dr. Carey
[2019-05-01] MEDS ORDERED: LORazepam 1 MG TAB PO STA (18:02)
[2019-05-01] MEDS: ATORVASTATIN 40 MG TAB PO SCH (20:36)
[2019-05-01] MEDS: METOPROLOL SUCC 50MG EXT REL TAB PO SCH (20:38)
[2019-05-01] MEDS: CHOLECALCIFEROL 1,000 UNITS TAB PO SCH (20:39)
[2019-05-01] MEDS: MICONAZOLE NITRATE POWDER 43 GM EXT PRN (20:48)
[2019-05-01] MEDS: ONDANSETRON 8 MG TABLET PO PRN (22:16)
--- NOTE | 2019-05-01 22:47 | History & Physical Report ---
Date of Service May 01, 2019 Assessment & Plan (1) Edema: (2) Weakness generalized: Patient admitted with generalized weakness and history of mestatic mucinous adenocarcinoma of the appendix. Patient had decided to forego further treatment. Plan is to obtain goals of care. will consult palliative care. Will continue to monitor clinically for the meantime. (3) GORDON (acute kidney injury): Creatinine has been gradually worsening. Creat is 2.7 will monitor Given lymphedema, will be dificult to diurese as kidney function will likely worsen. (4) Hypermagnesemia: 3.1 will monitor. (5) Chemotherapy induced neutropenia: resolved. (6) Lymphedema: Patient has severe lymphedema. May consider diuresing for comfort purposes. was started on Lasix, only received 1-2 doses. Given patient's current renal function and low albumin would be very difficult to effectively diurese will hold off as patient is in GORDON. (7) Hypothyroidism: cont home levothyroxine dose. (8) Hypercholesterolemia: continue statin (9) Hypertension: will continue home meds BP stable (10) Afib: will continue home meds. will continue eliquis. (11) Anxiety: will monitor. placed on lorazepam PO TID as this is her home regimen. History of Present Illness Chief Complaint: Generalized weakness. Primary Care Provider: Sotero Weber MD this is a pleasant 69 yo female who comes in the hospital with hisotry of mucinous adencoarcinoma which has mestatstizised. Patient reports she had been treated with chemotherapy but this was topped as she noticed a worsening in her quality of life. Patient has reported generalied weakness which has gradually been getting worse over past few weeks. Today patient was unable to get out of the bathroom. Allergies Allergy/AdvReac Type Severity Reaction Status Date / Time tree and shrub pollen Allergy Unknown Unknown Verified 05/01/19 09:39 Home Medications Home Medications Medication Instructions Recorded Confirmed Type cholecalciferol (vitamin D3) 2,000 unit PO QPM 05/20/18 05/01/19 History [Vitamin D3] fexofenadine [Lucero Allergy] 180 mg PO QAM 05/20/18 05/01/19 History levothyroxine 150 mcg PO QAM 05/20/18 05/01/19 History magnesium 250 mg PO TID 05/20/18 05/01/19 History metoprolol succinate 100 mg PO BID 05/20/18 05/01/19 History omeprazole 20 mg PO BID 05/20/18 05/01/19 History atorvastatin 80 mg tablet 80 mg PO QPM 02/19/19 05/01/19 History ondansetron HCl 8 mg tablet 8 mg PO Q8H tab 02/20/19 05/01/19 History prochlorperazine maleate 10 mg 10 mg PO Q8H PRN 02/20/19 05/01/19 History tablet lorazepam 1 mg tablet 1 mg PO TID #270 tab 03/04/19 05/01/19 Rx apixaban 5 mg tablet 5 mg PO BID #180 tab 03/20/19 05/01/19 Rx diltiazem ER (XR/XT) 180 mg 180 mg PO QAM #90 cap 03/28/19 05/01/19 Rx capsule,extended release 24 hr, controlled buspirone 15 mg tablet 15 mg PO TID #90 tab 04/25/19 05/01/19 Rx furosemide 20 mg tablet 40 mg PO DAILY #60 tab 04/30/19 05/01/19 Rx escitalopram oxalate [Lexapro] 20 mg PO QAM 05/01/19 05/01/19 History potassium chloride 10 meq PO Q2D 05/01/19 05/01/19 History Past Med/Surg History Medical History Vitamin D deficiency (Acute) Urinary frequency (Acute) Stress incontinence in female (Acute) Spinal stenosis (Acute) Recurrent urinary tract infection (Acute) Polyneuropathy (Acute) Nephrolithiasis (Acute) Lymphedema (Acute) 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 High-grade mucinous adenocarcinoma. 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- OBSERVATION RECOMMENDED PER RECORDS Leg laceration (Resolved) Acute cholangitis Anemia CHRONIC Cancer APPENDICEAL TUMOR (REASON FOR PROCEDURE) Depression Footdrop LEFT ?NERVE INJURY S/P LEFT MEHREEN- WEARS LEG/FOOT BRACE GERD (gastroesophageal reflux disease) Hiatal hernia "SMALL" Morbid obesity Osteoarthritis Urinary tract infection HX RECURRENT UTI'S Surgical History History of cardiac catheterization 17 YRS AGO= NO STENTS History of ERCP History of appendectomy CANCER DX'D History of bowel resection RIGHT HEMICOLECTOMY WITH ILEOCOLOSTOMY, PRIMARY ANASTOMOSIS (07/2018) History of hysterectomy TOTAL History of laparoscopic cholecystectomy History of open reduction and internal fixation (ORIF) procedure RIGHT TIBIA History of total hip arthroplasty B/L Family History Son Family history of diabetes mellitus Mother Coronary heart disease Father Breast cancer Sister Breast cancer Social History Preferred Language: Hebrew Communication Ability: Effective Visual Impairment: No Limitations Hearing Ability: Normal Preparation Operator Required: No Beliefs That Will Affect Care: None marital status: Current Living Situation: Spouse Feels Safe at Home: Yes Smoking Status: Never smoker Second Hand Exposure: No ; Hx Alcohol Use: No Hx Substance Use: No Childhood Exposure to Second-Hand Smoke: Yes Dental Care, Regularly: Yes Seatbelt Use: always Sunscreen Use: Yes Review of Systems Constitutional: + malaise and + weakness; no sweats Eyes: no diplopia and no decreased night vision Ear, Nose, Mouth, Throat: no nasal discharge Respiratory: + dyspnea on exertion Cardiovascular: + dyspnea at rest; no chest pain Gastrointestinal: + nausea; no bloating, no vomiting and no hematemesis Genitourinary: no urinary frequency and no urinary hesitancy Musculoskeletal: no radicular pain Integumentary: no rash, no non-healing lesions and no skin ulcer Neurologic: no falls and no paralysis Psychiatric: no change in appetite Physical Exam Constitutional: WD/WN, vitals as above + ill appearing Eyes: PERRL, conjunctivae normal, anicteric sclerae ENMT: external ear and nose normal, oropharynx normal Neck: trachea midline, no thyromegaly Respiratory: normal respiratory effort and + labored breathing Auscultation: lungs clear to auscultation bilaterally Cardiovascular: Irregular rhythm, normal rate, positive lower extremity edema Gastrointestinal (Abdomen): normal bowel sounds, soft, nontender, no hepatosplenomegaly Skin: no rashes, warm and dry Lymphatic: no cervical or axillary lymphadenopathy Results & Data Vital Signs (Past 12 Hours) Vital Signs Temp Pulse Pulse Resp BP Pulse Ox 05/01/19 20:20 93 H 96/67 L 05/01/19 19:26 36.4 C L 84 20 107/73 97 05/01/19 15:56 36.2 C L 85 16 116/80 94 05/01/19 11:10 36.4 C L 74 16 122/85 95 Code Status & VTE Plan VTE Prophylaxis Plan VTE Prophylaxis will be ordered: Yes PG Care Time/CCT Total # of Minutes Spent Total Time Spent with Patient: Total time spent is greater than 50% in coordination of care (as documented) at patient's floor/unit and/or counseling patient:
[2019-05-01] MEDS: LORazepam 1 MG TAB PO SCH (23:23)
[2019-05-02] MEDS: TRAMADOL HCL 50 MG TABLET PO PRN ×2 (00:35→08:15)
[2019-05-02] MEDS: LORazepam 1 MG TAB PO SCH ×3 (08:13→20:50)
[2019-05-02] MEDS: ESCITALOPRAM OXALATE 20 MG TAB PO SCH (08:14)
[2019-05-02] MEDS: BusPIRone 15 MG TAB PO SCH ×3 (08:14→20:34)
[2019-05-02] MEDS: APIXABAN 5 MG TABLET PO SCH ×2 (08:14→20:34)
[2019-05-02] MEDS: PANTOprazole 40 MG TAB PO SCH ×2 (08:15→20:35)
[2019-05-02] MEDS: ONDANSETRON 8 MG TABLET PO PRN (08:19)
[2019-05-02] MEDS: LEVOTHYROXINE SODIUM 150 MCG TABLET PO SCH (08:20)
[2019-05-02] MEDS: MAGNESIUM OXIDE 400 MG TAB PO SCH ×3 (08:21→20:34)
[2019-05-02] MEDS: FEXOFENADINE HCL 180 MG TAB PO SCH (08:21)
[2019-05-02] MEDS: METOPROLOL SUCC 50MG EXT REL TAB PO SCH ×2 (08:22→20:36)
--- NOTE | 2019-05-02 12:58 | Palliative Care Progress Note ---
Date of Service May 02, 2019 Assessment & Plan (1) Goals of care, counseling/discussion: -69 year old female with end stage colorectal cancer with mets. Admitted with GORDON injury, lasix was stopped. Patient is declining rather rapidly with increased weakness and lethargy. -Dr. Simpson saw patient this morning and recommended home hospice care. Her family including Gianfranco, daughter Matilde, two granddaughters, were present. Patient and family were then requesting to speak with palliative care. -Met with patient, her Gianfranco, Matilde, and granddaughter Maria C in room 455. Patient oriented x4, but drowsy throughout conversation. -Patient states that she wants to go home. Family needs to arrange 24/7 care through private caregivers and family. I provided list for private duty caregivers. -Patient/family request referral to [facility]-- hospice case manager taking care of this. -POLST form explained and completed as follows: DNR, comfort measures only, abx with comfort as the goal, and no artificial hydration/nutrition. gianfranco is surrogate decision maker. -Discussed a lot of end of life issues, including increased lethargy and decreased PO intake. Patient and family's questions answered. -Patient has a lot of pain in her legs, back, and abdomen. Ordered Roxanol 5mg PO/SL Q4h PRN pain or SOB. Patient and family counseled on the secondary side effects of morphine such as sedation and respiratory depression. -Patient is on lorazepam 1mg PO TID scheduled. Then ordered 0.5mg PO TID PRN for breakthrough anxiety. Anxiety is playing large role in patient's discomfort. -Comfort measures only discussed-- no further lab draws, continue PO medications for now. -Once plans are made, patient can go home. Maybe early next week once 24/7 care is arranged. 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 Patient family reports that patient is lethargic and drowsy on/off at home as well. Review of Systems Constitutional: + fatigue and + weakness Ear, Nose, Mouth, Throat: Mild TRIBE Respiratory: + dyspnea on exertion Cardiovascular: + dyspnea on exertion and + edema Gastrointestinal: + diarrhea/loose stools Genitourinary: Negative for urinary tract infection symptoms Musculoskeletal: + muscle weakness pain of BLE Integumentary: excoriation and painful rash in abdominal folds under panus Physical Exam Constitutional: + ill appearing and + obese; no acute distress ENMT: Ears: + hearing impairment (mildly TRIBE) Respiratory: normal respiratory effort, lungs clear to auscultation Cardiovascular: Rate/Rhythm: regular rate and regular rhythm Extremities: + edema (+4 pitting edema to BL feet and legs) Gastrointestinal (Abdomen): Inspection/Auscultation: abdomen normal to inspection, + abdomen distended (obesely distended) and normal bowel sounds Percussion/Palpation: abdomen soft; abdomen nontender Skin: red rash under abdominal fold-- open areas, extremely sore Neurologic: awake (but lethargic) Results & Data Vital Signs (Past 12 Hours) Vital Signs Temp Pulse Resp BP Pulse Ox 05/02/19 07:43 35.8 C L 102 H 16 103/70 95 Supervising Physician Co-Signing Physician Notes Patient seen and examined-patient's other daughter, 2 granddaughters and at bedside. Patient appears more fatigued compared to exam yesterday PE: Patient awake and alert, more fatigued HEENT: EOMI, hearing within normal limits Respirations: Unlabored CV: Tachycardic, 3+ lower extremity edema Neuro: Alert and oriented x4 Agree with above note, assessment and plan as per BASSAM Zhang. Plan is for patient to return home under hospice care. Collaborated with Dr. Simpson at this a.m. regarding patient's prognosis-likely days. We will reviewed prior discussion with both patient and family regarding making the time she has left meaningful. Answered all patient's questions and addressed her concerns. PG Care Time/CCT Prolonged Care Time Prolonged Care Time: Yes Total Prolonged Care Time: 90 Time Spent Midlevel 100 minutes with >50% of time spent at bedside with patient and family discussing GOC, POLST form, EOL issues. Attending Spent 30 minutes in addition to the 100 minutes spent by BASSAM Bull for a total of 130 minutes with greater than 50% of the time spent at bedside addressing patient's questions and concerns as well as providing support to family. Critical Care Time Prolonged Care Time Prolonged Care Time: Yes Total Prolonged Care Time: 90 130
[2019-05-02] MEDS: LORazepam 0.5 MG TAB SL PRN (19:29)
[2019-05-02] MEDS: MICONAZOLE NITRATE POWDER 43 GM EXT PRN (19:39)
[2019-05-02] MEDS: CHOLECALCIFEROL 1,000 UNITS TAB PO SCH (20:34)
[2019-05-02] MEDS: ATORVASTATIN 40 MG TAB PO SCH (20:35)
[2019-05-02] MEDS: MoRPHine SULFATE 5 MG/0.25 ML UDP PO PRN (20:36)
--- NOTE | 2019-05-02 22:42 | Hospitalist Progress Note ---
Date of Service May 02, 2019 Assessment & Plan (1) Edema: (2) Weakness generalized: Patient admitted with generalized weakness. Patient had extensive discussion with family. Agreeable to home hspice, however looking for Sunday as need to get equipment and house ready for patient's return. 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 Will slowly taper patient off chronic medicine that is not improtant for the short term. will no longer order labs. (3) GORDON (acute kidney injury): Creatinine has been gradually worsening. Creat is 2.7 will monitor (4) Hypermagnesemia: 3.1 will monitor. (5) Chemotherapy induced neutropenia: resolved. (6) Lymphedema: Patient has severe lymphedema. May consider diuresing for comfort purposes. will hold off as patient is in GORDON. (7) Hypothyroidism: cont home levothyroxine dose. (8) Hypercholesterolemia: will discontinue tomorrow (9) Hypertension: will continue home meds BP stable (10) Afib: will continue home meds. will continue eliquis. (11) Anxiety: will monitor. placed on lorazepam PO TID as this is her home regimen. (12) Acute kidney failure: as noted above. Subjective Patient reports no new symptoms. Family is at bedside. They do not want patient to be discharged home on hospice over the weekend, hwoever they are interested in perhaps discharging on Sunday. They are looking to get the equipment and get the home arranged for the patient's return home. Review of Systems Review of Systems: All systems reviewed & are unremarkable except as noted in HPI & below Physical Exam Constitutional: WD/WN, vitals as above + ill appearing Eyes: PERRL, conjunctivae normal, anicteric sclerae ENMT: external ear and nose normal, oropharynx normal Neck: trachea midline, no thyromegaly Respiratory: normal respiratory effort and + labored breathing Auscultation: lungs clear to auscultation bilaterally Gastrointestinal (Abdomen): normal bowel sounds, soft, nontender, no hepatos plenomegaly Skin: no rashes, warm and dry Lymphatic: no cervical or axillary lymphadenopathy PG Care Time/CCT Total # of Minutes Spent Total Time Spent with Patient: Total time spent is greater than 50% in coordination of care (as documented) at patient's floor/unit and/or counseling patient:
[2019-05-03] MEDS: LORazepam 0.5 MG TAB SL PRN ×2 (06:00→23:46)
[2019-05-03] MEDS: MoRPHine SULFATE 5 MG/0.25 ML UDP PO PRN ×5 (06:00→22:43)
[2019-05-03] MEDS: LEVOTHYROXINE SODIUM 150 MCG TABLET PO SCH (06:01)
[2019-05-03] MEDS: BusPIRone 15 MG TAB PO SCH ×3 (08:31→21:13)
[2019-05-03] MEDS: LORazepam 1 MG TAB PO SCH (08:31)
[2019-05-03] MEDS: MAGNESIUM OXIDE 400 MG TAB PO SCH ×2 (08:35→14:23)
[2019-05-03] MEDS: ESCITALOPRAM OXALATE 20 MG TAB PO SCH (08:35)
[2019-05-03] MEDS: APIXABAN 5 MG TABLET PO SCH ×2 (08:36→21:13)
[2019-05-03] MEDS: FEXOFENADINE HCL 180 MG TAB PO SCH (08:45)
[2019-05-03] MEDS: METOPROLOL SUCC 50MG EXT REL TAB PO SCH ×2 (08:47→21:15)
[2019-05-03] MEDS: ATORVASTATIN 40 MG TAB PO SCH (08:47)
[2019-05-03] MEDS: ONDANSETRON 4 MG OD TAB PO PRN (14:15)
[2019-05-03] MEDS: LORazepam 1 MG TAB SL SCH ×2 (14:15→21:12)
[2019-05-03] MEDS: PANTOprazole 40 MG TAB PO SCH (14:23)
[2019-05-03] MEDS ORDERED: ALUMINUM/MAGNESIUM SUSP 50 ML, DiphenhydrAMINE Syrup 125 MG, LIDOCAINE HCL 2% VISCOUS 4... PO PRN (21:15)
--- NOTE | 2019-05-03 22:45 | Hospitalist Progress Note ---
Date of Service May 03, 2019 Assessment & Plan (1) Weakness generalized: Agreeable to home hospice, however looking for Sunday as family needs to get equipment and house ready for patient's return. 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 removed non essential PO meds. Patient placed on roxanol, zofran and ativan. will no longer order labs. 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 placed on lorazepam PO TID as this is her home regimen. She normally takes 3 tabs a day as well as additional as needed anxiety medication. Will also order PRN lorazepam in addition to help combat the anxiety patient has while in the hospital (5) GORDON (acute kidney injury): Creatinine has been gradually worsening. Creat is 2.7 will monitor Given lymphedema, will be dificult to diurese as kidney function will likely worsen. (6) Hypermagnesemia: 3.1 will monitor. (7) Chemotherapy induced neutropenia: resolved. (8) Lymphedema: Patient has severe lymphedema. May consider diuresing for comfort purposes. will hold off as patient is in GORDON. (9) Hypothyroidism: cont home levothyroxine dose. (10) Hypercholesterolemia: will discontinue tomorrow (11) Hypertension: will continue home meds BP stable (12) Afib: will continue home meds. will continue eliquis. (13) Acute kidney failure: as noted above. Subjective 69 yo female reports no new symptoms. Patient's main concern is her anxiety which is chronic. Family is concerned over number of medicine patient is taking and would like to remove non essential medications. Patient appears to be having difficulty swallowing these medications. Review of Systems Review of Systems: All systems reviewed & are unremarkable except as noted in HPI & below Physical Exam Physical Exam: Constitutional: WD/WN, vitals as above + ill appearing Eyes: PERRL, conjunctivae normal, anicteric sclerae ENMT: external ear and nose normal, oropharynx normal Neck: trachea midline, no thyromegaly Respiratory: normal respiratory effort Auscultation: lungs clear to auscultation bilaterally Gastrointestinal (Abdomen): normal bowel sounds, soft, nontender, no hepatosplenomegaly Skin: no rashes, warm and dry Lymphatic: no cervical or axillary lymphadenopathy Results & Data Vital Signs (Past 12 Hours) Vital Signs Pulse BP 05/03/19 21:15 91 H 105/73 PG Care Time/CCT Total # of Minutes Spent Total Time Spent with Patient: Total time spent is greater than 50% in coordination of care (as documented) at patient's floor/unit and/or counseling patient:
[2019-05-04] MEDS: MoRPHine SULFATE 5 MG/0.25 ML UDP PO PRN ×3 (00:48→09:35)
[2019-05-04] MEDS: ONDANSETRON 4 MG OD TAB PO PRN ×2 (00:48→06:12)
[2019-05-04] MEDS: LEVOTHYROXINE SODIUM 150 MCG TABLET PO SCH (06:12)
[2019-05-04] MEDS: LORazepam 1 MG TAB SL SCH ×3 (08:24→22:53)
[2019-05-04] MEDS ORDERED: PANTOprazole 40 MG TAB PO SCH (09:00)
[2019-05-04] MEDS: ESCITALOPRAM OXALATE 20 MG TAB PO SCH (09:35)
[2019-05-04] MEDS: BusPIRone 15 MG TAB PO SCH (09:35)
[2019-05-04] MEDS: METOPROLOL SUCC 50MG EXT REL TAB PO SCH (09:35)
[2019-05-04] MEDS: APIXABAN 5 MG TABLET PO SCH (09:35)
[2019-05-04] MEDS ORDERED: MoRPHine SULFATE 4 MG/ML 1 ML CARP\\VIAL IV PRN (11:07)
[2019-05-04] MEDS ORDERED: ATROPINE SULFATE 1% OP SOLN 5 ML BTL PO PRN (11:07)
[2019-05-04] MEDS: LORazepam 0.5 MG TAB SL PRN ×2 (11:34→19:37)
[2019-05-04] MEDS: ATROPINE SULFATE 1% OP SOLN 5 ML BTL PO PRN ×2 (14:20→17:28)
[2019-05-04] MEDS: MoRPHine SULFATE 10 MG/0.5 ML UDP PO PRN ×3 (14:39→22:53)
[2019-05-04] MEDS: MoRPHine SULFATE 4 MG/ML 1 ML CARP\\VIAL IV PRN ×2 (17:27→19:38)
[2019-05-05] MEDS: MoRPHine SULFATE 4 MG/ML 1 ML CARP\\VIAL IV PRN ×5 (07:42→17:54)
[2019-05-05] MEDS: LORazepam 1 MG TAB SL SCH (08:00)
--- NOTE | 2019-05-05 08:48 | Hospitalist Progress Note ---
Date of Service May 04, 2019 - late entry from date of service 05/04/19, i apologize for any confusion Assessment & Plan (1) Weakness generalized: Related to her overall decline, seems to have declined to wear home with hospice would be overwhelming on her in the family. 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 Extensive discussions with the family in this regard as well. Later in the day she appears to have much better pain control. (4) Anxiety: Continue Lorazepam, supportive care (5) GORDON (acute kidney injury): Cease following given that she is purely for comfort care (6) Hypermagnesemia: Cease following given that she is purely for comfort care (7) Chemotherapy induced neutropenia: Same as above (8) Lymphedema: Comfort care only (9) Hypothyroidism: Family notes she is having significant difficulty swallowing, notes that he is seeing a markedly rapid declinewe will stop all p.o. meds (10) Hypercholesterolemia: Stop all p.o. meds as above (11) Hypertension: Stop all p.o. meds as above (12) Afib: Stop all p.o. meds as above (13) Acute kidney failure: as noted above. Subjective Very little meaningful HPI review of systems obtainable from patient, but in discussions with family and nursing, she is having tremendous pain with even a little bit of movement. Pain medicines are not adequate to control her pain whenever she is moving, and sometimes even at rest. Family notes that they would feel overwhelmed with her at home and her current status, and also have concerns that she would suffer because of their inability to be able to truly manage her pain. I agree with all of this wholeheartedly. Review of Systems Review of Systems: Unobtainable due to cognitive status Physical Exam Physical Exam: General she is awake but seems to have varying levels of alertness throughout the day, whenever I first walk in the room they are trying to remove the pad from under her legs and even with a little bit of movement of her legs she is moaning out in what appears to be rather significant pain. HEENT normal cephalic atraumatic mucous membranes are moist. Breathing is unlabored no accessory muscle use good effort. Skin shows chronic venous stasis changes, no tracking erythema. Neuro shows no focal deficits. PG Care Time/CCT Total # of Minutes Spent Total Time Spent with Patient: Total time spent is greater than 50% in co ordination of care (as documented) at patient's floor/unit and/or counseling patient:
[2019-05-05] MEDS: MoRPHine SULFATE 10 MG/0.5 ML UDP PO PRN (09:17)
[2019-05-05] MEDS: ATROPINE SULFATE 1% OP SOLN 5 ML BTL PO PRN (09:22)
[2019-05-05] MEDS ORDERED: SCOPOLAMINE 1.5 MG TDSY TD SCH (11:00)
[2019-05-05] MEDS: ATROPINE SULFATE 1% OP SOLN 5 ML BTL SL PRN ×4 (13:28→17:54)
[2019-05-05] MEDS: LORazepam 0.5 MG/1 ML VIAL IV PRN ×2 (15:40→17:54)
[2019-05-05] MEDS ORDERED: CHECK SCOPOLAMINE PATCH PLACEMENT SCH (16:00)
--- NOTE | 2019-05-05 16:10 | Palliative Care Progress Note ---
Date of Service May 05, 2019 Assessment & Plan (1) Goals of care, counseling/discussion: -69 year old female with end stage ascending colon cancer with involvement of the appendix and distant mets. Patient is declining rather rapidly to EOL . Is currently on comfort care, multiple family at bedside. -Discussed a lot of end of life issues, family reports each of spent some alone time, patient was able to converse with all her grandchildren yesterday. Has not been responsive today -Patient has a lot of pain in her legs, back, and abdomen. Ordered Roxanol 5mg PO/SL Q4h PRN pain or SOB. Patient and family counseled on the secondary side effects of morphine such as sedation and respiratory depression. -Patient is on comfort meds including IV morphine, scopolamine patch, Ativan, and PRN atropine -Comfort measures only discussed-- no further lab draws, minimal repositioning due to severe pain Will continue to follow and provide support to family members at bedside. 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 Patient is minimally responsive on exam today. Family reports patient is comfortable until she is moved. Patient with weeping lower extremity edema and excess oral secretions. Patient with decreased urine output-put out 150 cc in a 24-hour period yesterd ay, only 20 cc so far today documented. Patient is now on comfort care, a scope patch was placed for excess secretions as well as PRN atropine. Patient has required 6 doses of IV morphine at 4 mg and 3 doses of Roxanol in the past 24 hours for comfort. She also received 1 dose of PRN Ativan. Family reports that patient has not been responsive today-we will make an occasional vocalization, but does yell out in pain with personal care despite being premedicated. Review of Systems Review of Systems: Unobtainable due to reduced consciousness Physical Exam Physical Exam: Patient unresponsive to voice or touch on exam this afternoon HEENT: Excess oral secretions Respiratory: Unlabored CV: Regular rate, weeping lower extremity edema Neuro: Obtunded PG Care Time/CCT Total # of Minutes Spent Total Time Spent with Patient: Total time spent is greater than 50% in coordination of care (as documented) at patient's floor/unit and/or counseling patient: Time Spent Attending Total time spent 35 minutes with greater than 50% of the time spent at bedside discussing end-of-life issues and providing support to family at bedside
--- NOTE | 2019-05-05 20:47 | Discharge Summary ---
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 Patient reports she had been treated with chemotherapy but this was topped as she noticed a worsening in her quality of life. Patient has reported generalied weakness which has gradually been getting worse over past few weeks. Today patient was unable to get out of the bathroom. Principal Diagnosis Metastatic appendiceal cancer Discharge Exam Earlier in the day she was resting comfortably with no clear distress. Her breathing was slow and unlabored. Skin was somewhat pale, but overall she appeared comfortable. Later for pronouncement she was found to be unresponsive to verbal or noxious stimuli. No heart tones or breath sounds, pupils fixed and dilated. Time of 6:15 PM Discharge Data Allergies Allergy/AdvReac Type Severity Reaction Status Date / Time tree and shrub pollen Allergy Unknown Unknown Verified 05/01/19 09:39 Consultations 05/01/19 09:30 ED Decision to Admit Stat 05/01/19 09:51 Consult Palliative Care Stat Hospital Course (1) Weakness generalized: Related to her overall decline, she had declined to wear home with hospice would be overwhelming on her in the family. 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 Instead she was able to get better control of her pain, and then she passed much more comfortably and peacefully than I suspect she would have at home. Offered empathy and support to family (4) Anxiety: (5) GORDON (acute kidney injury): (6) Hypermagnesemia: (7) Chemotherapy induced neutropenia: (8) Lymphedema: (9) Hypothyroidism: (10) Hypercholesterolemia: (11) Hypertension: (12) Afib: (13) Acute kidney failure: Total Time Total Time Spent Total Time Spent (In Minutes): >30 Discharge Plan Discharge Items Reason For Visit: ACUTE KIDNEY FAILURE/HYPERKALEMIA Condition on Discharge: Fair Medications and DC Order Prescriptions: No Action lorazepam 1 mg tablet 1 mg PO TID Qty: 270 RF: 0 Eliquis 5 mg tablet 5 mg PO BID Qty: 180 RF: 3 diltiazem HCl 180 mg capsule,ext.rel 24h degradable 180 mg PO QAM Qty: 90 RF: 3 furosemide 20 mg tablet 40 mg PO DAILY Qty: 60 RF: 3 ondansetron HCl [Zofran] 8 mg tablet 8 mg PO Q8H RF: 0 prochlorperazine maleate 10 mg tablet 10 mg PO Q8H PRN (Reason: Nausea) RF: 0 buspirone 15 mg tablet 15 mg PO TID Qty: 90 RF: 4 fexofenadine [Lucero Allergy] 180 mg Tablet 180 mg PO QAM RF: 0 levothyroxine 150 mcg Tablet 150 mcg PO QAM RF: 0 magnesium 250 mg Tablet 250 mg PO TID RF: 0 metoprolol succinate 100 mg Tablet Extended Release 24 Hr 100 mg PO BID RF: 0 omeprazole 20 mg Capsule,Delayed Release(Dr/Ec) 20 mg PO BID RF: 0 cholecalciferol (vitamin D3) [Vitamin D3] 2,000 unit Tablet 2,000 unit PO QPM RF: 0 atorvastatin [Lipitor] 80 mg tablet 80 mg PO QPM RF: 0 potassium chloride 10 mEq tablet extended release 10 meq PO Q2D RF: 0 escitalopram oxalate [Lexapro] 20 mg tablet 20 mg PO QAM RF: 0 Admission Data Admit Date/Time: 05/01/19 09:48 Attending Provider: Morgan Spivey Admit Provider: Mike Carey Primary Care Provider: Sotero Weber Other Providers: Mike Carey ; Ivory Flower
== END 2019-05-05 18:15 | disposition expired | DRG 683 ==
LOC: ED 07:50 → SUATTDRO 09:48 → 4W 09:48